=== PATIENT | male | born 1970 | race Caucasian/White ===

== ENCOUNTER → 2021-12-14 | Outpatient (CLI) | payer BC, SELFPAY ==
[2021-12-14 15:54] LABS: Anion Gap 7 (5-15); BUN 18 mg/dL (7-18); BUN/Creat Ratio 23.1 RATIO (10-20); Calcium,Total 9.2 mg/dL (8.5-10.1); Chloride 107 mmol/L (98-107); Cholesterol 183 mg/dL (200); Creatinine, Serum 0.78 mg/dL (0.70-1.30); EST Glomerular Filtration Rate 112 mL/min (>60); Est Glom Filt Rate - Afr Amer 135 mL/min (>60); Glucose 93 mg/dL (74-106); High Density Lipoprotein 54 mg/dL; Potassium 4.1 mmol/L (3.5-5.1); Sodium Level 139 mmol/L (136-145); Triglycerides 60 mg/dL; Very Low Density Lipoprotein 12 mg/dL (5-40)
== END | disposition home or self-care (01) ==
LOC: MFPLAB 12:41
PROVIDERS: Visit Provider Family Medicine
DX: Z00.00 Encounter for general adult medical examination without abnormal findings (principal)
CPT/HCPCS: 36415; 80048; 80061; 82306

== ENCOUNTER 2022-01-22 07:50 | Day surgery (SDC) | payer BC, SELFPAY ==
[2022-01-22 08:27] VITALS: BP 119/71; PULSE 68; RESP 18; TEMP 36.3; O2SAT 98; BMI 27.4
[2022-01-22] MEDS: Lactated Ringers 1,000 ML 15 ML IV (08:35)
--- NOTE | 2022-01-22 09:22 | HP.PCM_ITS ---
HPI - General HPI Narrative MARIETTA PRINGLE, is a 51 M who presents for screening colonoscopy. The patient has not had a colonoscopy in the past. He denies any abdominal pain or blood in the stool. He has no family history of colon cancer. [facility] Medical History (Updated 01/16/22 @ 10:57 by Kathy Noble) No pertinent past medical history Home Medications NK 12/20/21 [History Last Taken Unknown] Allergy/AdvReac Type Severity Reaction Status Date / Time No Known Allergies Allergy Verified 01/22/22 08:24 Surgical History (Updated 01/16/22 @ 10:57 by Kathy Noble) No pertinent past surgical history Social History Smoking Status: Never smoker Past Medical/Surgical History Planned Operation Planned Operative Procedure/s: Colonoscopy, OA Previous Hospitalizations/Surgeries HX Hospitalizations: No Any Problems With Anesthesia: No You/Your Family Experience Fever (Hyperthermia) With Anes: No Cholinesterase deficiency: No Cardiovascular Hx Hypertension: No Respiratory Hx Sleep Apnea: No Hx Respiratory Tract Infection/Cold (presently): No Do You Snore Loudly (louder than talking or can be heard): No Do You Often Feel Tired/ Fatigued/ Sleepy Dring Daytime?: No Has Anyone Observed You Stop Breathing During Sleep?: No Result (for STOP score): Negative Smoking Status: Never smoker Neurological Does patient have nerve stimulator: No Allergies No Known Allergies Allergy (Verified 01/22/22 08:24) Discharge Is Pt Admitted From a [facility], or a [facility]: No After D/C, Where Do you Plan to Go: Return Home Vital Signs Vital Signs Vital Signs: 01/22/22 08:26 01/22/22 08:27 Temperature 97.3 F L Temperature Source Temporal Pulse Rate 68 Respiratory Rate 18 Respiratory Pattern Normal Blood Pressure 119/71 Blood Pressure Mean 87 Blood Pressure Source Monitor Blood Pressure Position Semi-Fowlers Blood Pressure Location Right Arm Pulse Ox 98 Oxygen Delivery Method Room Air Weight Weight: 213 lb 12.8 oz Body Mass Index (BMI) 27.4 Physical Exam Const alert and oriented x3 Resp normal respiratory effort and normal air movement Cardio regular rate and regular rhythm GI soft to palpation, non-tender and non-distended Assessment & Plan Assessment/Plan (1) Encounter for screening for malignant neoplasm of colon: PLAN: I explained endoscopy in detail to the patient. I explained the risks including but not limited to stroke or heart attack with anesthesia, perforation of the GI tract, bleeding, infection. I explained that any of these could necessitate further emergency surgery. The patient understands and all questions were answered sufficiently. The patient wishes to proceed with procedure. Joseph Archibald MD Pager: [facility] [address] [place] [address] [address] [place] [address] Office: Surgery Risks - Colonoscopy Risks Include but are not Limited To: Risks include but are not limited to: Bleeding, perforation requiring further surgery, inability to complete colonoscopy requiring barium enema.
[2022-01-22 09:50] VITALS: BP 119/71; BP 81/56; PULSE 70; RESP 18; TEMP 36.6; O2SAT 98
--- NOTE | 2022-01-22 09:54 | OP.COLON_ITS ---
Patient Name: Nolan Dobson Procedure Date: 01/22/2022 9:28 AM Date of : 1970 Age: 51 Procedure: Colonoscopy Indications: Screening for colorectal malignant neoplasm Providers: Joseph Archibald MD Medicines: Monitored Anesthesia Care Patient Profile: This is a 51 year old male. Refer to note in patient chart for documentation of history and physical. Last Colonoscopy: none. The patient's first colonoscopy is today. Complications: No immediate complications. Procedure: Pre-Anesthesia Assessment: - Prior to the procedure, a History and Physical was performed, and patient medications and allergies were reviewed. The patient's tolerance of previous anesthesia was also reviewed. The risks and benefits of the procedure and the sedation options and risks were discussed with the patient. All questions were answered, and informed consent was obtained. Prior Anticoagulants: The patient has taken no previous anticoagulant or antiplatelet agents. After reviewing the risks and benefits, the patient was deemed in satisfactory condition to undergo the procedure. After I obtained informed consent, the scope was passed under direct vision. Throughout the procedure, the patient's blood pressure, pulse, and oxygen saturations were monitored continuously. The Colonoscope was introduced through the anus and advanced to the cecum, identified by appendiceal orifice and ileocecal valve. The colonoscopy was performed without difficulty. The patient tolerated the procedure well. The quality of the bowel preparation was good. Scope In: 9:38:10 AM Scope Withdrawal Time 0 hours 4 minutes 14 seconds Scope Out: 9:44:59 AM Total Procedure Duration Time 0 hours 6 minutes 49 seconds Findings: The entire examined colon appeared normal on direct and retroflexion views. Impression: - The entire examined colon is normal on direct and retroflexion views. - No specimens collected. Recommendation: - Discharge patient to home. - Resume previous diet. - Continue present medications. - Repeat colonoscopy in 10 years for screening purposes. Procedure Code(s): --- Professional --- 23927, Colonoscopy, flexible; diagnostic, including collection of specimen(s) by brushing or washing, when performed (separate procedure) Diagnosis Code(s): --- Professional --- Z12.11, Encounter for screening for malignant neoplasm of colon CPT copyright 2017 [employer]. All rights reserved. The codes documented in this report are preliminary and upon computer language coder review may be revised to meet current compliance requirements. Joseph Archibald MD 01/22/2022 9:53:38 AM This report has been signed electronically. Number of Addenda: 0 Note Initiated On: 01/22/2022 9:28 AM
[2022-01-22 09:55] VITALS: BP 106/76; BP 119/71; PULSE 66; RESP 16; O2SAT 97
[2022-01-22 10:00] VITALS: BP 106/84; BP 119/71; PULSE 60; RESP 16; O2SAT 98
[2022-01-22 10:05] VITALS: BP 119/71; BP 120/84; PULSE 64; RESP 16; TEMP 36.5; O2SAT 98
[2022-01-22 10:30] VITALS: BP 119/71
== END 2022-01-22 10:32 | disposition home or self-care (01) ==
LOC: EN 07:53 → AC 07:55
PROVIDERS: PCP Family Medicine; Referring Provider Surgery; Visit Provider Surgery
PROC: 0DJD8ZZ Inspection of Lower Intestinal Tract, Via Natural or Artificial Opening Endoscopic (ICD-10-PCS; CPT 45378; principal; 2022-01-22 08:55)
DX: Z12.11 Encounter for screening for malignant neoplasm of colon (principal)
CPT/HCPCS: 45378; J7120

== ENCOUNTER → 2025-03-03 | Outpatient (CLI) | payer BC, SELFPAY ==
--- OUTSIDE RECORDS SUMMARY | 2025-03-03 12:46 | XMS RPT_ITS | CCD ---
Author Organization [facility] Care Team Providers Care Obstetrics Nurse Practitioner Name Role Phone Luz Dudley Attending Provider Unavailable Dr. Jimmy Carpio Primary Care Provider Dr. Joseph Archibald Attending Provider Dr. Joseph Archibald Referring Provider Dr. Joseph Archibald Other Provider Jimmy Carpio MD Primary Care Provider [phone] PADMINI KAMINSKI Attending Unavailable ALONZO, JIMMY Primary Care Unavailable REG DILLARD Attending Unavailable ALONZO, JIMMY Primary Care Unavailable SHIRLEY GROVER Attending Unavailable ALONZO, JIMMY Primary Care Unavailable KIA MUÑOZ Attending Unavailable ALONZO, JIMMY Primary Care Unavailable ALONZO, JIMMY Primary Care Unavailable PADMINI KAMINSKI Referring Unavailable KIA MUÑOZ Attending Unavailable ALONZO, JIMMY Primary Care Unavailable KIA MUÑOZ Attending Unavailable ALONZO, JIMMY Primary Care Unavailable SHIRLEY GROVER Referring Unavailable ALONZO, JIMMY Primary Care Unavailable Medications Current Medications Medication Drug Class(es) Dates Sig (Normalized) Sig (Original) [place] (Nk) (1 source) Start: 12-20-2021 [place] (Nk) A ctive December 20, 2021 12:00am Completed/Discontinued Medications Medication Drug Class(es) Dates Sig (Normalized) Sig (Original) bacitracin 0.5 unt/mg topical ointment (2 sources) Start: 09-07-19 End: 09-07-19 apply 1 dose topically once Topical, Once, On Fri09/07/24 at 1450, For 1 dose cefadroxil 500 mg oral capsule (4 sources) Cephalosporin Antibacterial Start: 09-08-19 End: 09-18-19 take 1 capsule by mouth twice daily cefadroxil (Duricef) 500 MG capsule Indications: Avulsion of nail of left middle finger Take 1 capsule (500 mg) by mouth 2 times daily for 10 days. 20 capsule 09/08/2024 09/18/2024 ibuprofen 400 mg oral tablet (2 sources) Nonsteroidal Anti-inflammatory Drug Start: 09-07-19 End: 09-07-19 take 800 mg by mouth once 800 mg, Oral, Once, On Fri09/07/24 at 1345, For 1 dose methylPREDNISolone 4 mg oral tablet (2 sources) Corticosteroid Start: 05-21-20 End: 05-26-20 take 1 tablet by mouth once Methylprednisolone (Medrol (Manpreet)) 4 mg tablets,dose pack Discontinued 4 MG PO per package directions 21 5 May 21, 2021 7:49am May 26, 2021 12:01am 10 ml tranexamic acid 100 mg/ml injection (2 sources) Antifibrinolytic Agent Start: 09-07-19 End: 09-07-19 apply 10 mL topically once 10 mL, Topical, Once, On Fri09/07/24 at 1425, For 1 dose, Bedside to soak gauze for finger wound, Apply to: Both Nares Problems Active Problems Problem Classification Problem Date Documented Da te Episodic/Chronic Open wounds of extremities (20 sources) Open wound of left middle finger; Translations: [Unspecified open wound of left middle finger without damage to nail, initial encounter] Onset: 09-07-2024 09-07-2024 Episodic Osteoarthritis (3 sources) Arthritis of left knee; Translations: [Unilateral primary osteoarthritis, left knee] Onset: 10-29-2024 10-29-2024 Chronic Other connective tissue disease (3 sources) Plantar fasciitis; Translations: [Plantar fascial fibromatosis] Onset: 10-26-2024 10-26-2024 Episodic Other non-traumatic joint disorders (2 sources) Pain in left knee; Translations: [Pain in left knee] Onset: 10-29-2024 Episodic Other screening for suspected conditions (not mental disorders or infectious disease) (4 sources) Patient encounter status; Translations: [Encounter for screening for malignant neoplasm of colon] Onset: 10-26-2024 Episodic Past or Other Problems Problem Classification Problem Date Documented Da te Episodic/Chronic Unclassified (4 sources) Open wound of left middle finger 09-07-2024 Results Test Name Value Interpretation Reference Range Facility Office Visiton 10-29-2024 Follow-up visit [id number] Morris Dobson 1970 M Date Provider Department Center 10/29/2024 [id number], SHIRLEY [facility] None No family history on file Level of Service:55028 [place] OFFICE/OUTPATIENT NEW LOW MDM 30 MINUTES (25) Reason for Visit and Comments: New Patient [542] - Left knee pain Normal [facility] Progress Noteon 10-29-2024 Progress Note [facility] [address] [facility] [address] Dept: [phone] Dept Marietta Dobson 1970 [id number] 10/29/2024 Chief Complaint Patient presents with New Patient Left knee pain HPI: Marietta is a 54 y.o. male who is here today for evaluation of his left knee. Their symptoms have been on and off for 10 years but got worse a couple of weeks ago. The current symptoms started after no recent injury. 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 The patient complains of stiffness and swelling. The pain is located medial and posterior. Activities that make the pain worse include going up/down stairs and being on his feet long periods of time. Previous Treatments NSAIDs: Yes - Aleve Helpful Injection: No - Has never received an injection Bracing: No Therapy: No - Has not attempted formal therapy Surgery: No- Has not had previous surgery on the symptomatic extremity MRI: No Has not had an MRI The patient is employed as a production maintenance mechanic. Marietta is referred by self. SANE score: 80 No Known Allergies No current outpatient medications on file prior to visit. No current facility-administered medications on file prior to visit. No past medical history on file. No past surgical history on file. Social History Socioeconomic History Marital status: Spouse name: Not on file Number of children: Not on file Years of education: Not on file Highest education level: Not on file Occupational History Not on file Tobacco Use Smoking status: Never Smokeless tobacco: Never Substance and Sexual Activity Alcohol use: Not Currently Comment: occasionally Drug use: Never Sexual activity: Not on file Other Topics Concern Not on file Social History Narrative Not on file Social Drivers of Health Financial Resource Strain: Not on file Food Insecurity: Not on file Transportation Needs: Not on file Physical Activity: Not on file Stress: Not on file Social Connections: Not on file Intimate Partner Violence: Not on file Housing Stability: Not on file No family history on file. Physical Exam: BP 132/86 Ht 6' 2 (1.88 m) Wt 215 lb (97.5 kg) BMI 27.60 kg/m? MUSCULOSKELETAL: Hip Exam: no pain elicited with internal and external range of motion. Lumbar Exam: negative same side and contralateral straight leg raise. Left Knee: Palpation reveals no tenderness Non tender with palpation over the remaining bony prominences or palpable structures around the knee. Negative homans sign at the calf. Patellofemoral exam reveals moderate crepitus with patellar compression and knee ROM and no significant pain or apprehension with patellar compression or manipulation Inspection of the knee reveals no obvious deformity or swelling, no obvious skin lesion, erythema, or discoloration. Mild effusion. Neutral alignment. Scars include none. ROM: RIGHT LEFT Extension AROM Full PROM Same AROM Full PROM Same Flexion AROM 130? PROM Same AROM 130? PROM Same Sensation: Sensation intact over the medial and anterior thigh, medial and posterolateral calf, dorsal and plantar foot. Pulse: Palpable DP pulse. Reflexes: 2+ patellar reflexes. Motor: Motor is 5/5 with knee extension, flexion. Ligamentous Examination: ACL testing reveals negative howard with firm endpoint. Negative pivot shift. PCL testing reveals negative posterior drawer testing. MCL testing reveals negative valgus stress with firm endpoint at 0 and 30 degrees. LCL testing reveals negative varus stress with firm endpoint at 0 and 30 degrees. Special Tests (as indicated): Pain with hyperextension: negative Pain with hyperflexion: negative Mendoza's test: No significant pain elicited with mendoza testing Thessaly test (Standing wt-bearing pivoting): N/A Imaging: Knee Xrays: Plain films were taken today and reviewed in office. Weight bearing 4 views including AP, and PA flex views of bilateral knees, lateral and sunrise views of the affected knee(s) show mild to moderate narrowing in the left medial compartments with associated sclerosis and osteophyte formation in affected compartments noted above. 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 No evidence of fracture or other osseous abnormality. No evidence of obvious malignant bony lesions. Other Diagnostic Testing: None IMPRESSION: Diagnosis Plan 1. Arthritis of left knee PROCEDURE: None PLAN: The patients history, exam, and imaging is consistent with acute on chronic pain consistent with mild to moderate arthritis. He does report a basketball related injury about 10 years ago where he likely caused a meniscus tear and MCL tear. 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 We discussed overall prognosis and general conservative versus potential surgical treatment option. Given his flare of sym (more content not included)... Normal [facility] XR KNEE 4+ VIEWS LEFTon 03-2 XR KNEE 4+ VIEWS LEFT Weight bearing 4 views including AP, and PA flex views of bilateral knees, lateral and sunrise views of the affected knee(s) show mild to moderate narrowing in the left medial compartments with associated sclerosis and osteophyte formation in affected compartments noted above. 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 No evidence of fracture or other osseous abnormality. No evidence of obvious malignant bony lesions. Normal [facility] 36on 10-21-2024 36 Fax successfully and paperwork scanned into the chart Normal [facility] 36 Paperwork completed and fax pending awaiting confirmation [facility] 36 ----- Message from Jennifer Salazar sent at 10/19/2024 3:06 PM EDT ----- Regarding: BWC plan BW Plan Current work status: remain on light duty NWB left long finger and must keep clean and dry. He can return to work full duty on 11/15/24. C9 request: None [facility] 37on 10-19-2024 37 [email or web address] Finger Protectors/Cots: Disposable protector finger covers: THERAPY TO MAKE YOUR HANDS LESS TENDER Hand injuries are often very tender during the early healing phase. Often, tenderness in scars gets worse starting one to two weeks after injury or surgery. Unfortunately, this tenderness does not always go away by itself. The nerves in the hand are special and are more sensitive than other parts of the body. After any injury, the skin of the hand must get used to being touched again for the tenderness to go away. If you do not touch the sore areas of your hand, they may remain very sensitive and tender. The techniques of PERCUSSION and FRICTION MASSAGE outlined in this pamphlet will help speed up the process of recovery from tenderness in your hands and fingers. The goal of these exercises is to make your wounds less tender. It is normal for these exercises to be somewhat uncomfortable while doing them or shortly afterwards. If the exercises are too painful, try using less pressure. If that does not work, then give yourself a several hour break and try again. If pain again is a problem, speak with your doctor or your therapist. These exercises will not be recommended until it is safe to do them. PERCUSSION (Tapping): This technique activates the automatic reflex which makes us ignore things which are very repetitive. This reflex will dull the tenderness in areas of your hand that are touched repeatedly. Here is how to do percussion: 1. Tap lightly on the area of your hand which is tender. You can tap on the sensitive area with a finger tip of your other hand or with a light object such as a pencil. 2. Find the spot which is the most tender. 3. Note the time, and begin to tap rapidly (2-3 times a second), lightly and continuously on the most tender area. 4. Keep tapping without a break for three minutes or until you notice the feeling in the area change. The area may start to feel numb or it may simply feel a little bit less tender. 5. Take a minute rest and begin again. You may find that a different area is now the most tender spot. This exercise should be done as many times as possible during the day. It takes many thousands of taps to really change the tenderness in a sore area. The sooner you accumulate that many taps, the sooner your wounds will be more comfortable. FRICTION MASSAGE: The goal of friction massage is to STRETCH the scar tissue beneath the skin. As with percussion, it should be done many times during the day. This exercise not only helps improve tenderness, but helps restore the contour of the skin to a more normal appearance. Here is how to do friction massage: 1. Place a finger tip of your other hand against the central area of the scar. 2. Mentally note four directions that the skin can be pushed sideways: near, far, left and right. 3. With your finger tip pressed firmly against the scar and without sliding, gently but steadily push the skin to one side as if you were trying to slide the skin off of the bone. Hold this position for five seconds. 4. Briefly relax and then repeat this maneuver in one of the other directions. Make sure you attempt to slide the skin in all four directions. 5. If the scar is wider than your finger tip, repeat this stretching exercise on every point of the scar. This exercise is done without any skin lubrication. Remember to do this exercise before applying any antibiotic ointment or moisturizing creams. Patient Education Hand and Finger Exercises About this topic Your doctor may want you to do hand and finger exercises. They may: Increase blood flow to nerves, muscles, and joints in your hand Ease joint stiffness in your hand Help you heal faster after injury or surgery Help make your daily activities easier to do General Before starting with a program, ask your doctor if you are healthy enough to do these exercises. Your doctor may have you work with a inside sales trainer or physical therapist to make a safe exercise program to meet your needs. Strengthening Exercises Strengthening exercises keep your muscles firm and strong. Sit while doing these exercises. Be sure to use good posture. Start by repeating each exercise 2 to 3 times. Work up to doing each exercise 10 times. Try to do the exercises 2 to 3 times each day. Do all exercises slowly. Tendon gliding exercises using 4 positions ? Start by holding your hand with your fingers straight. Then, bend only the last two joints of your fingers and move your fingers into a hook or claw position. Next, straighten your fingers and bend your knuckles to make a flat table top position. This is also called the duckbill position. Last, make a full fist. Moving your hand into all 4 positions is one exercise. Finger and thumb bending and straightening ? Open your hand as far as you can. Spread your thumb away from the rest of your grace (more content not included)... Normal [facility] Office Visiton 10-19-2024 Follow-up visit [id number] Morris Dosbon 1970 M Date Provider Department Center 10/19/2024 [id number] MUÑOZ [facility] None No family history on file Level of Service:80329 [place] POSTOP FOLLOW UP VISIT RELATED TO ORIGINAL PX Reason for Visit and Comments: Follow-up [215445] - left long finger wound check DOI 09/07/24 [facility] Progress Noteon 10-19-2024 Progress Note Subjective: Marietta is approximately 6 week(s) s/p left long finger nail avulsion/laceration. Pain is minimal, moderate when he bumps it. He is no longer taking anything for pain. He reports improvement in pain. The patient has been compliant with non-weight bearing restrictions in soft dressing. He admits to numbness and tingling. The patient has been performing daily soaks and dressing changes. Today is the first day with no drainage. The patient feels his finger continues to gradually improve as expected. He reports persistent moderate hypersensitivity at the tip of his finger as well as paresthesias along the radial and ulnar aspect of his middle finger pulp. He has remained on light duty which he feels has been working well. He eventually would like to return to full duty but feels he may need additional time. He has had scant intermittent drainage from the tip of his finger but over the past 24 hours has not noted any drainage whatsoever. He continues to perform soaks and dressing changes as instructed. He has no additional concerns today regarding his hand. He does request a referral to a specialist to evaluate and treat his knee pain. He has a history of meniscus/ligament injury. Objective: Ht 6' 2 (1.88 m) Wt 215 lb (97.5 kg) BMI 27.60 kg/m? Ortho Exam Focused Exam of the Left Upper Extremity Skin: healing laceration over the middle finger without evidence of infection which is dry and scabbed with no active or expressible drainage, no signs of infection, new nail plate comprises the proximal third of the nailbed Clinical Picture: Edema: mild edema surrounding the long finger Palpation: tender to palpation over the long finger wound as expected with mild hypersensitivity ROM: LEFT long finger MCP (nl 0-45?H/90?) PIP (nl 0?/100?) DIP (nl 0?-80?) Tip to Palm EXTENSION 0? 0? 0? FLEXION Not measured Not measured Not measured able to contact *(Passive values entered only if different than active; otherwise = AROM) Remaining fingers flex to palm. Active wrist range of motion: full flexion/ full extension. Pronation full/ Supination full. Motor: Intact in the hand - able to fire AIN, PIN, and Ulnar nerves Sensation: to light touch is normal in the median, ulnar, and radial nerve distributions Perfusion: Brisk capillary refill in all 5 digits XRay: None Assessment Diagnosis Plan 1. Avulsion of nail of left middle finger Plan I would like Marietta to continue daily soaks and soft dressing changes until it has been 2-3 days since last noting drainage from his wound. He can then progress to wearing a soft dressing only or silicone/cotton sleeve over the tip of the finger for protection and hypersensitivity when active. This can be discontinued once he no longer has scabbing over the wound and feels comfortable without a finger covering. Finger range of motion was encouraged. Home going therapy exercises were demonstrated today in the office and detailed exercise instructions are provided to the patient. The patient is to remain partial weightbearing through the hand until the wound is completely healed and then can begin gentle weightbearing as tolerated. The patient was advised to gradually advance weightbearing as tolerated using pain as a guide. Expected recovery course was discussed with the patient. He was recommended desensitization exercises. He will continue light duty until November 15 and then can return to full duty without restrictions. He understands that he can reach out with any concerns in the interim or if he does not feel he can proceed with returning to full duty as planned. Otherwise, if he is recovering well as expected, he can follow up in the office on an as needed basis. Their questions were answered and are comfortable with the plan. Weight Bearing: Partial Weight Bearing (no more than 2-5lbs) until wound is completely healed then WBAT Rehabilitation: Home Exercises: full range of motion and to be partial until wound healed then gradual weight bearing. Instructions reviewed today in office. I plan to see Marietta back on an as needed basis to see how he is doing. Marietta knows to call the office with any questions or concerns in the interim. Future Imaging: None [facility] Plan Current work status: remain on light duty NWB left long finger and must keep clean and dry. He can return to work full duty on 11/15/24. C9 request: None Electronically signed by Kia Muñoz PA-C to Reg Dillard M.D. Hand & Upper Extremity Surgery 10/19/2024 at 3:05 PM. (Please note that portions of this note may have been completed with a voice recognition program. Efforts were made to edit the dictations but occasionally words are mis-transcribed.) Normal [facility] 36on 10-07-2024 36 Scanned successfully Normal [facility] 365 36 Fax successfully and paperwork will be scanned into the chart [facility] 36 Paperwork completed and fax pending awaiting confirmation [facility] 36 ----- Message from Jennifer Salazar sent at 09/30/2024 1:18 PM EST ----- Regarding: BW Plan BW Plan Current work status: continue light duty, non weight bearing of the left hand and must wear dressing/splint on the middle finger at all times . C9 request: none [facility] Office Visiton 09-28-2024 Follow-up visit [id number] BronsonMorris ness zoë 1970 M Date Provider Department Center 09/28/2024 [id number] MUÑOZ [facility] None No family history on file Level of Service:92737 [place] POSTOP FOLLOW UP VISIT RELATED TO ORIGINAL PX Reason for Visit and Comments: Follow-up [[id number]] - [facility] - left long finger wound check DOI 09/07/24 [facility] Progress Noteon 09-28-2024 Progress Note Subjective: Marietta is approximately 3 week(s) s/p closed treatment of open left long finger nail avulsion/laceration DOI: 09/07/24 . Pain is nonexistent. He is no longer taking anything for pain. He denies significant complaints. The patient has been compliant with non-weight bearing restrictions in soft dressing. He admits to numbness and tingling. The patient has been performing daily soaks and dressing changes and completed the course of oral antibiotics. The patient returns today for a repeat skin check. He feels his wound is gradually healing as expected. He still has occasional drainage on his bandages and has been performing soaks as recommended. He completed his oral antibiotics. He continues to protect his finger with a dry bandage or splint as needed. He is uncertain if he would be able to return to work as he continues to have an open wound with limited weightbearing. Objective: BP (!) 123/93 Pulse 82 Ht 6' 2 (1.88 m) Wt 215 lb (97.5 kg) BMI 27.60 kg/m? Ortho Exam Focused Exam of the LEFT Upper Extremity Skin: Appropriately healing wound along the pulp and distal nailbed of the middle finger, progressive adequate granulation tissue along the pulp wound, progressive epithelialization and callus formation along the dorsal aspect of the finger, new nail plate erupting from the eponychial fold, no active or expressible drainage, no surrounding erythema or signs of infection Clinical Picture: Edema: mild edema surrounding the long finger Palpation: tender to palpation over the long finger wound as expected ROM: LEFT long finger MCP (nl 0-45?H/90?) PIP (nl 0?/100?) DIP (nl 0?-80?) Tip to Palm EXTENSION 0? 0? 0? FLEXION 90? 70? 20? able to contact *(Passive values entered only if different than active; otherwise = AROM) Remaining fingers flex to palm. Active wrist range of motion: full flexion/ full extension. Pronation full/ Supination full. Malrotation of Digit: No Malalignment: of Digit: No Motor: Intact in the hand - able to fire AIN, PIN, and Ulnar nerves Sensation: to light touch is normal in the median, ulnar, and radial nerve distributions Perfusion: Brisk capillary refill in all 5 digits XRay: NONE Assessment Diagnosis Plan 1. Avulsion of nail of left middle finger 2. Laceration of left middle finger without foreign body with damage to nail, subsequent encounter 3. Open wound of left middle finger Plan Marietta is healing his wound as expected without signs of infection today. I would like him to continue daily soaks, soft dressing changes, and Alumifoam splint as needed. Once he no longer notices drainage for 2 to 3 days, he can discontinue soaks. I would like him to continue protecting his finger when he is active with either a soft dressing or his AlumaFoam splint. Finger range of motion was encouraged. The patient was encouraged to come out of the splint multiple times a day to work on wrist and hand range of motion exercises. Home going therapy exercises were demonstrated today in the office and detailed exercise instructions are provided to the patient. The patient is to remain nonweightbearing through the hand for 3 more weeks and then can begin gentle weightbearing as tolerated in the splint. The patient was advised to gradually advance weightbearing as tolerated using pain as a guide. Once fully weightbearing in the splint, can begin weaning out of the splint and use as needed. Expected recovery course was discussed with the patient. I would like him to follow-up in 3 weeks for repeat wound check and to discuss his ability to return to full duty at work. In the meantime, he will continue light duty and was provided a letter for work today. Their questions were answered and are comfortable with the plan. Weight Bearing: Non Weight Bearing Rehabilitation: Home Exercises: full range of motion and to be non weight bearing. Instructions reviewed today in office. I plan to see Marietta back in 3 weeks to see how he is doing. Marietta knows to call the office with any questions or concerns in the interim. Future Imaging: NONE [facility] Plan Current work status: continue light duty, non weight bearing of the left hand and must wear dressing/splint on the middle finger at all times . C9 request: none Electronically signed by Kia Muñoz PA-C to Reg Dillard M.D. Hand & Upper Extremity Surgery 09/29/2024 at 5:06 PM. (Please note that portions of this note may have been completed with a voice recognition program. Efforts were made to edit the dictations but occasionally words are mis-transcribed.) [facility] 36on 2024 36 Fax successfully and paperwork scanned into the chart [facility] 36 C9 OT approval with disclaimer uploaded to media. AA pending [facility] 36 Paperwork completed and fax pending awaiting confirmation [place] [id number] ----- Message from Jennifer Salazar sent at 2024 9:30 AM EST ----- Regarding: [facility] Plan [facility] Plan Current work status: light duty keep wound covered at all times and non weight bearing C9 request: none [facility] 37on 09-15-2024 37 Soaks for Open Wound s Dr. Reg Dillard Please send clinical photos to Please include your name and date of in the subject line of e-mail Please remove all dressings so that you may see the skin fully Prepare a clean sink full of warm water (bath temperature). Add 3 or 4 squirts of liquid antibacterial soap Insert hand and soak for approximately 15 minutes, making sure to exercise your fingers under the water After finished soaking, pat wound dry Apply dressing as instructed in the office Layer #1 - Light cotton gauze Layer #2 - MJ wrap or other loose covering I typically recommend soaking 3 times per day with a clean dressing change after each soak. To be continued until wound completely closed with no drainage in dressings. Normal [facility] Office Visiton 09-15-2024 Follow-up visit [id number] Morris Dobson 1970 M Date Provider Department Center 09/15/2024 [id number]-QHSIDJOKIA MUÑOZ [facility] ORT GRN None No family history on file Level of Service:10329 [place] POSTOP FOLLOW UP VISIT RELATED TO ORIGINAL PX Reason for Visit and Comments: Follow-up [663800] Worker's Compensation [732] Wound Check [635759] Normal [facility] Progress Noteon 09-15-2024 Progress Note Subjective: Marietta is approximately 8 day(s) s/p left long finger nail avulsion/laceration DOI: 09/07/24. Pain is minimal. He is no longer taking anything for pain. He reports improvement in pain. The patient has been compliant with non-weight bearing restrictions in soft dressing. He admits to numbness and tingling just on the tip of the finger and the back where the wound is. The patient has been performing daily soaks and dressing changes and continues to take the course of oral antibiotics. The patient returns for repeat skin check. He continues to report drainage from his finger and has been compliant with his soaks and dressing changes. He has not yet returned to work but plans to next week. He feels that his finger range of motion has been gradually improving as well as his pain. He denies fevers and chills. Objective: Ht 6' 2 (1.88 m) Wt 215 lb (97.5 kg) BMI 27.60 kg/m? Ortho Exam Focused Exam of the Left Upper Extremity Skin: Appropriately healing avulsion wound from the volar pulp and distal nailbed of the middle finger, adequate granulation tissue present throughout the base of the wound with scattered fibrous tissue present distally and mild scabbing, subtle active serosanguineous drainage from the distal wound bed with no signs of infection Clinical Picture: Edema: moderate edema surrounding the long finger wound Palpation: tender to palpation over the long finger wound, minimal ROM: LEFT long finger MCP (nl 0-45?H/90?) PIP (nl 0?/100?) DIP (nl 0?-80?) Tip to Palm EXTENSION 0? 0? 0? FLEXION Not measured Not measured Not measured 2cm *(Passive values entered only if different than active; otherwise = AROM) Remaining fingers flex to palm. Active wrist range of motion: full flexion/ full extension. Pronation full/ Supination full. Motor: Intact in the hand - able to fire AIN, PIN, and Ulnar nerves Sensation: to light touch is normal in the median, ulnar, and radial nerve distributions Perfusion: Brisk capillary refill in all 5 digits XRay: None Assessment Diagnosis Plan 1. Avulsion of nail of left middle finger 2. Laceration of left middle finger without foreign body with damage to nail, subsequent encounter 3. Open wound of left middle finger Plan Marietta is healing his wound appropriately with no evidence of infection today. He was advised to continue daily soaks, soft dressing changes, antibiotics, and Alumifoam splint. Finger range of motion was encouraged within the confines of the splint. He understands he can remove his dressing and splint to perform range of motion without limits preferably while he is doing his soaks. No formal therapy is needed at this time. The patient is to remain nonweightbearing through the hand until his wound is completely healed. Expected recovery course was discussed with the patient. He will continue to monitor for signs of infection and contact the office if he has any concerns. He we will return to work next week as planned on light duty. His questions were answered and he is comfortable with the plan. Weight Bearing: Non Weight Bearing Rehabilitation: Home Exercises: full range of motion and to be non weight bearing. Instructions reviewed today in office. I plan to see Marietta back in 2 weeks to see how he is doing. Marietta knows to call the office with any questions or concerns in the interim. Future Imaging: None [facility] Plan Current work status: light duty keep wound covered at all times and non weight bearing C9 request: none Electronically signed by Kia Muñoz PA-C to Reg Dillard M.D. Hand & Upper Extremity Surgery 09/15/2024 at 5:31 PM. (Please note that portions of this note may have been completed with a voice recognition program. Efforts were made to edit the dictations but occasionally words are mis-transcribed.) [facility] 09-13-2024 36 Fax successfully and paperwork scanned into the chart [facility] 09-09-2024 36 Additional allowance C9 was submitted as well Paperwork completed and fax pending awaiting confirmation [facility] 36 ----- Message from Jennifer Salazar sent at 09/08/2024 10:27 AM EST ----- Regarding: [facility] plan [facility] Plan Current work status: may return to work light duty on 09/08/24, with the following restrictions NWB and keep covered. C9 request: OT [facility] 3609-08-2024 36 Appointment schedule d with Dr. Dillard for today at 9:30am. Patient aware of appointment time and location. [facility] 09-08-2024 37 Soaks for Open Wound s Dr. Reg Dillard Please send clinical photos to Please include your name and date of in the subject line of e-mail Please remove all dressings so that you may see the skin fully Prepare a clean sink full of warm water (bath temperature). Add 3 or 4 squirts of liquid antibacterial soap Insert hand and soak for approximately 15 minutes, making sure to exercise your fingers under the water After finished soaking, pat wound dry Apply dressing as instructed in the office Layer #1 - Light cotton gauze Layer #2 - MJ wrap or other loose covering I typically recommend soaking 3 times per day with a clean dressing change after each soak. To be continued until wound completely closed with no drainage in dressings. Normal [facility] Office Visiton 09-08-2024 Follow-up visit [id number] Morris Dobson 1970 M Date Provider Department Center 09/08/2024 [id number] DILLARD [facility] None No family history on file Level of Service:87117 [place] OFFICE/OUTPATIENT NEW LOW MDM 30 MINUTES Reason for Visit and Comments: New Patient [542] - Left middle finger Normal [facility] Progress Noteon 09-08-2024 Progress Note [facility] [address] [facility] [address] Dept: [phone] Dept Chief Complaint Patient presents with New Patient Left middle finger HISTORY Marietta Dobson is a 53 y.o. right handed male that presents for evaluation and treatment after sustaining an injury to his LEFT long finger that occurred 1 days ago. 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 Mechanism of injury - stuck in rubber roll press. Treatment up to this point has consisted of XRays and splinting in the emergency room. No results found for: HGBA1C The patient reports an injury to his left middle finger at work yesterday where it was stuck in a rolling press. He noticed immediate bleeding along the tip of his finger and nailbed and was treated with x-rays and soft dressing/splinting in the emergency department. He comes out of this dressing for the first time since application yesterday. He has mild stiffness of his finger which he relates to immobilization. OBJECTIVE Ht 6' 2 (1.88 m) Wt 215 lb (97.5 kg) BMI 27.60 kg/m? Ortho Exam Focused Exam of the LEFT Upper Extremity Skin: Soft tissue avulsion from the distal pulp and nailbed of the left middle finger with nail plate no longer intact, surrounding area is mildly macerated, mild serosanguineous drainage Clinical image(s): Edema: mild edema surrounding the middle finger wound Palpation: tender to palpation over the middle finger wound is expected ROM: RIGHT long finger MCP (nl 0-45?H/90?) PIP (nl 0?/100?) DIP (nl 0?-80?) Tip to Palm EXTENSION 0? 0? 0? FLEXION Not measured Not measured Not measured Limited flexion due to splinting and pain, expected *(Passive values entered only if different than active; otherwise = AROM) Patient is able to fire FDS and FDP to the middle finger Stability: no evidence of joint instabilities Motor: AIN, PIN, and ulnar motor intact Sensation: normal in the median, ulnar, and radial nerve distributions Perfusion: Brisk capillary refill in all 5 digits Examination of the contralateral upper extremity reveals skin to be warm, dry, and intact. There is no evidence of edema. He has full range of motion without apparent instabilities. There is no apparent tenderness to palpation. Excellent strength without deficit. Normal coordination and sensation throughout his upper extremity. Easily palpable radial pulse. IMAGING Plain films were reviewed by myself from a previous date. 3V HAND (AP, Oblique, and LAT) show soft tissue avulsion from the tip of the middle finger, no acute osseous abnormalities, advanced thumb CMC osteoarthritis PROCEDURE None ASSESSMENT (S61.313A) Laceration of left middle finger without foreign body with damage to nail, initial encounter (Q51.303A) Avulsion of nail of left middle finger 1. Laceration of left middle finger without foreign body with damage to nail, initial encounter 2. Avulsion of nail of left middle finger cefadroxil (Duricef) 500 MG capsule PLAN I discussed with Marietta the natural history, expected outcome, and risks/benefits of both operative and nonoperative management of his particular diagnosis relative to his age, activity level, most recent imaging, and physical exam. Marietta elected to proceed with 3 times daily soaks and subsequent dressing changes, oral antibiotics as prescribed until completion, and DIP extension splinting as needed when active. He was encouraged to work on finger range of motion during his soaks but remain nonweightbearing through his left middle finger until his wound is completely healed. We reviewed expected recovery course. We also discussed signs of infection and he was advised to notify the office upon noticing any of these signs. He was provided with a work excuse letter listing his restrictions and we will complete [facility] forms as indicated. He will follow-up next week for repeat skin check. His questions were answered and he is comfortable with the plan. Immobilization: Alumafoam splint to be worn PRN Weight Bearing: Non Weight Bearing Follow-up: Marietta will followup with my physician facility assistant, Kia Muñoz PA-C in 1 weeks. He knows to call the office with any questions or concerns in the interim. Future Imaging: NONE [facility] Plan Current work status: light duty keep wound covered and non weight bearing C9 request: none Reg Dillard MD Hand and Upper Extremity Surgery [facility] Department of Orthopaedics and Sports Medicine 09/08/2024 (Please note that portions of this note may have been completed with a voice recognition program. Efforts were made to edit the dictations but occasionally words are mis-transcribed.) Normal [facility] ED Provider Noteon ED Provider Note EMERGENCY DEPARTMENT ENCOUNTER Pt Name: Marietta Dobson Birthdate 1970 Date of evaluation: 09/07/2024 ED Provider: Padmini Kaminski DO CHIEF COMPLAINT Chief Complaint Patient presents with Finger Injury Left middle finger was smashed in rubber pressure roll at work HISTORY OF PRESENT ILLNESS (Location/Symptom, Timing/Onset, Context/Setting, Quality, Duration, Modifying Factors, Severity) Note limiting factors. I wore appropriate PPE for the entirety of this encounter. HPI 53-year-old presents emergency department today with left middle finger crush injury after his finger got stuck in a rubber pressure roll at work. Uncertain of when last tetanus is updated. Avulsion injury with complete avulsion of nail to the left middle finger. Nursing Notes were reviewed. Limitations to history: None Outside historians: None REVIEW OF SYSTEMS Review of Systems Skin: Positive for wound. Pertinent positives and negatives as per HPI. PAST MEDICAL HISTORY History reviewed. No pertinent past medical history. SURGICAL HISTORY History reviewed. No pertinent surgical history. CURRENT MEDICATIONS Previous Medications No medications on file ALLERGIES Patient has no known allergies. FAMILY HISTORY No family history on file. SOCIAL HISTORY Social History Socioeconomic History Marital status: Tobacco Use Smoking status: Never Smokeless tobacco: Never Substance and Sexual Activity Alcohol use: Not Currently Comment: occasionally Drug use: Never SCREENINGS PHYSICAL EXAM ED Triage Vitals Temp Pulse Resp BP -- -- -- -- SpO2 Temp src Heart Rate Source Patient Position -- -- -- -- BP Location FiO2 (%) -- -- Physical Exam Vitals and nursing note reviewed. Constitutional: Appearance: Normal appearance. Cardiovascular: Rate and Rhythm: Normal rate. Pulmonary: Effort: Pulmonary effort is normal. Skin: General: Skin is warm and dry. Comments: Complete avulsion of fingernail of left middle finger and avulsion wound on the palmar aspect as well of the DIP of the left finger. Neurological: General: No focal deficit present. Mental Status: He is alert. Mental status is at baseline. Psychiatric: Mood and Affect: Mood normal. Behavior: Behavior normal. DIAGNOSTIC RESULTS Procedures/EKG: EKG was reviewed by myself. Physician EKG interpretation can be found in [facility] RADIOLOGY (Per Emergency Physician): Interpretation per the Radiologist below, if available at the time of this note: XR hand 3+ views left Final Result No acute fracture or dislocation identified. Extensive soft tissue swelling of the third digit distal aspect. Report Dictated on Electronically Signed By: Mack Andrade MD Electronically Signed Date/Time: 09/07/2024 2:44 PM EST ED BEDSIDE ULTRASOUND: Performed by ED Physician - none LABS: Labs Reviewed - No data to display All other labs were within normal range or not returned as of this dictation. EMERGENCY DEPARTMENT COURSE and DIFFERENTIAL DIAGNOSIS/MDM: Vitals: Vitals: 09/07/24 1342 BP: (!) 145/97 BP Location: Right arm Patient Position: Lying Pulse: 78 Resp: 18 Temp: 36.7 ?C (98.1 ?F) SpO2: 98% Weight: 97.5 kg (215 lb) Height: 1.88 m (6' 2) ED Course as of 09/07/24 1516 Tue Sep 07, 2024 1349 53-year-old presents emergency department today with left middle finger crush injury after his finger got stuck in a rubber pressure roll at work. Uncertain of when last tetanus is updated. Avulsion injury with complete avulsion of nail to the left middle finger. Will obtain x-ray to evaluate for fracture give ibuprofen for pain and update tetanus. Will discuss with orthopedic surgery. [BM] 1447 XR:No acute fracture or dislocation identified. Extensive soft tissue swelling of the third digit distal aspect. [BM] 1448 Per orthopedic surgery: soak them in betadine solution and then rinse with NS. As far as dressing, I would recommend adaptic with bacitracin dressing and soft dressing over top. Given no exposed bone, will discharge home with this dressing and close outpatient follow-up with hand surgery and wound care. [BM] ED Course User Index [BM] Padmini Kaminski DO Diagnoses as of 09/07/241515 Open wound of left middle finger Soaked wound in Betadine, rinsed with TXA and normal saline. Applied bacitracin, Adaptic dressing and bulky dressing over top. Spoke with Dr. Dillard of hand surgery who will be able to see patient in his office tomorrow. Wound Care Performed by: Padmini Kaminski DO Authorized by: Padmini Kaminski DO Consent: Consent obtained: Verbal Consent given by: Patient Risks, benefits, and alternatives were discussed: yes Risks discussed: Bleeding, infection and pain Altheimer protocol: Patient identity confirmed: Verbally with patient Pre-procedure details: Preparation: Patient was prepped and (more content not included)... [facility] No Panel Informationon 09-07 Padmini Kaminski DO 09/07/2024 3:16 PM Wound Care Performed by: Padmini Kaminski DO Authorized by: Padmini Kaminski DO Consent: Consent obtained: Verbal Consent given by: Patient Risks, benefits, and alternatives were discussed: yes Risks discussed: Bleeding, infection and pain Altheimer protocol: Patient identity confirmed: Verbally with patient Pre-procedure details: Preparation: Patient was prepped and draped in usual sterile fashion Sedation: Sedation type: None Anesthesia: Anesthesia method: None Procedure details: Indications: open wounds Wound location: Finger Finger location: L long finger Wound age (days): <1 Wound surface area (sq cm): 5 Debridement performed: No Dressing: Dressing applied: Adaptic dressing (bacitracin) Wrapped with: Bulky dressing Post-procedure details: Procedure completion: Tolerated Comments: Soaked wound in Betadine, rinsed with TXA and normal saline. Applied bacitracin, Adaptic dressing and bulky dressing over top. [facility] XR Hand - left 3 Viewson No acute fracture or dislocation identified. Extensive soft tissue swelling of the third digit distal aspect. Report Dictated on Electronically Signed By: Mack Andrade MD Electronically Signed Date/Time: 09/07/2024 2:44 PM EST [facility] Patient Name: MARIETTA DOBSON : 1970 Exam Date/Time: 09/07/2024 13:51 Procedure: XR HAND 3+ VIEWS LEFT Ordering Provider: KAMINSKI BRIGID Reason For Exam: middle finger avulsion injury LEFT HAND CLINICAL INDICATION: Middle finger avulsion injury, pain AP, lateral, and oblique plain film views of the left hand were obtained. COMPARISON: None FINDINGS: There is no fracture or dislocation. Distal predominant interphalangeal joints osteoarthritic changes are noted along with first carpometacarpal joint osteoarthritis. No bone lesion is identified. Soft tissue swelling and heterogeneity of the third digit distal predominant aspect observed, best characterized on AP and dedicated lateral imaging. [facility] Mack Andrade MD - 09/07/2024 Patient Name: MARIETTA DOBSON : 1970 Exam Date/Time: 09/07/2024 13:51 Procedure: XR HAND 3+ VIEWS LEFT Ordering Provider: KAMINSKI BRIGID Reason For Exam: middle finger avulsion injury LEFT HAND CLINICAL INDICATION: Middle finger avulsion injury, pain AP, lateral, and oblique plain film views of the left hand were obtained. COMPARISON: None FINDINGS: There is no fracture or dislocation. Distal predominant interphalangeal joints osteoarthritic changes are noted along with first carpometacarpal joint osteoarthritis. No bone lesion is identified. Soft tissue swelling and heterogeneity of the third digit distal predominant aspect observed, best characterized on AP and dedicated lateral imaging. IMPRESSION: No acute fracture or dislocation identified. Extensive soft tissue swelling of the third digit distal aspect. Report Dictated on Electronically Signed By: Mack Andrade MD Electronically Signed Date/Time: 09/07/2024 2:44 PM EST [employer] Radiology Study observation (narrative) [employer] XR Hand - left 3 ViewsOrdere d By: Mack Andrade on 09-07-2024 [employer] Work Phone: Colonoscopy Reporton 022 Colonoscopy Report [facility] Medical Records Department [address] [place] [id number] Colonoscopy Report MR#: [id number] Acct: [id number] Name: MARIETTA DOBSON Rep #: [id number] : 1970 51 From: Joseph Archibald MD PCP: Dr. Jimmy Carpio MD Status:[facility] Patient Name: Marietta Dobson Procedure Date: 01/22/2022 9:28 AM Date of : 1970 Age: 51 Procedure: Colonoscopy Indications: Screening for colorectal malignant neoplasm Providers: Joseph Archibald MD Medicines: Monitored Anesthesia Care Patient Profile: This is a 51 year old male. Refer to note in patient chart for documentation of history and physical. Last Colonoscopy: none. The patient's first colonoscopy is today. Complications: No immediate complications. Procedure: Pre-Anesthesia Assessment: - Prior to the procedure, a History and Physical was performed, and patient medications and allergies were reviewed. The patient's tolerance of previous anesthesia was also reviewed. The risks and benefits of the procedure and the sedation options and risks were discussed with the patient. All questions were answered, and informed consent was obtained. Prior Anticoagulants: The patient has taken no previous anticoagulant or antiplatelet agents. After reviewing the risks and benefits, the patient was deemed in satisfactory condition to undergo the procedure. After I obtained informed consent, the scope was passed under direct vision. Throughout the procedure, the patient's blood pressure, pulse, and oxygen saturations were monitored continuously. The Colonoscope was introduced through the anus and advanced to the cecum, identified by appendiceal orifice and ileocecal valve. The colonoscopy was performed without difficulty. The patient tolerated the procedure well. The quality of the bowel preparation was good. Scope In: 9:38:10 AM Scope Withdrawal Time 0 hours 4 minutes 14 seconds Scope Out: 9:44:59 AM Total Procedure Duration Time 0 hours 6 minutes 49 seconds Findings: The entire examined colon appeared normal on direct and retroflexion views. Impression: - The entire examined colon is normal on direct and retroflexion views. - No specimens collected. Recommendation: - Discharge patient to home. - Resume previous diet. - Continue present medications. - Repeat colonoscopy in 10 years for screening purposes. Procedure Code(s): --- Professional --- 31601, Colonoscopy, flexible; diagnostic, including collection of specimen(s) by brushing or washing, when performed (separate procedure) Diagnosis Code(s): --- Professional --- Z12.11, Encounter for screening for malignant neoplasm of colon CPT copyright 2017 [employer]. All rights reserved. The codes documented in this report are preliminary and upon oxide furnace tender review may be revised to meet current compliance requirements. Joseph Archibald MD 01/22/2022 9:53:38 AM This report has been signed electronically. Number of Addenda: 0 Note Initiated On: 01/22/2022 9:28 AM 01/22/22 0953 Date Joseph Archibald MD Cosign Signature: Date (if indicated) CC: Dr. Joseph Archibald MD; Dr. Jimmy Carpio MD Date Dictated: 01/22/22927 Date Transcribed: As400 Analyst: NATALIYA Signed Normal [facility] Basic Metabolic Profile (BMP )on 12-14-2021 BUN/CRE 23.1 RATIO High 10-20 [facility] Comment on above: Performed By: #### L 500.2500, L506.1000, L500.4100 #### [facility] [address] [place], [address] CA,Total 9.2 mg/dL Normal 8.5-10.1 [facility] Comment on above: Performed By: #### L 500.2500, L506.1000, L500.4100 #### [facility] [address] [place], [address] Chloride [Moles/Vol] 107 mmol/L Normal 98-107 [facility] Comment on above: Performed By: #### L 500.2500, L506.1000, L500.4100 #### [facility] [address] [place], [address] CO2 [Moles/Vol] 25.0 mmol/L Normal 21.0-32.0 [facility] Comment on above: Performed By: #### L 500.2500, L506.1000, L500.4100 #### [facility] [address] [place], [address] Creatinine [Mass/Vol] 0.78 mg/dL Normal 0.70-1.30 [facility] Comment on above: Result Comment: The validity of the calculated GFR GFRAA in patients over 70 years has not been determined. Clinical correlation is essential. Performed By: #### L 500.2500, L506.1000, L500.4100 #### [facility] [address] [place], [address] EST GFR - AA 135 mL/min Normal >60 [facility] Comment on above: Result Comment: Afri can [employer] GFR Calc Performed By: #### L 500.2500, L506.1000, L500.4100 #### [facility] [address] [place], [address] GAP 7 Normal 5-15 [facility] Comment on above: Performed By: #### L 500.2500, L506.1000, L500.4100 #### [facility] [address] [place], [address] GFR/1.73 sq M.predicted among non-blacks MDRD (S/P/Bld) [Vol rate/Area] 112 mL/min/{1.73_m2} Normal >60 [facility] Comment on above: Result Comment: Non- GFR Calc Performed By: #### L 500.2500, L506.1000, L500.4100 #### [facility] [address] [place], [address] Glucose [Mass/Vol] 93 mg/dL Normal 74-106 [facility] Comment on above: Performed By: #### L 500.2500, L506.1000, L500.4100 #### [facility] [address] [place], [address] Potassium [Moles/Vol] 4.1 mmol/L Normal 3.5-5.1 [facility] Comment on above: Performed By: #### L 500.2500, L506.1000, L500.4100 #### [facility] [address] [place], [address] Sodium [Moles/Vol] 139 mmol/L Normal 136-145 [facility] Comment on above: Performed By: #### L 500.2500, L506.1000, L500.4100 #### [facility] [address] [place], [address] Urea nitrogen [Mass/Vol] 18 mg/dL Normal 7-18 [facility] Comment on above: Performed By: #### L 500.2500, L506.1000, L500.4100 #### [facility] [address] [place], [address] Basophil percentageon 2021 Chloride [Moles/Vol] 107 mmol/L 98-107 [facility] Work Phone: Cholesterol [Mass/Vol] 183 mg/dL <200 [facility] Work Phone: Comment on above: <200 mg/dL Desirable 200-240 mg/dL Borderline >240 mg/dL High Risk Glucose [Mass/Vol] 93 mg/dL 74-106 [facility] Work Phone: Potassium [Moles/Vol] 4.1 mmol/L 3.5-5.1 [facility] Work Phone: Sodium [Moles/Vol] 139 mmol/L 136-145 [facility] Work Phone: Triglyceride [Mass/Vol] 60 mg/dL <199 [facility] Work Phone: Comment on above: The drugs N-Acetylcy steine and Metamizole may falsely depress this assay.Serum Triglycerides Reference Interval Normal <150 mg/dL Borderline high 150 - 199 mg/dL High 200 - 499 mg/dL Very High > or = 500 mg/dL Laboratory - Chemistry and C hemistry - challengeon 12-14-2021 CO2 [Moles/Vol] 25.0 mmol/L 21.0-32.0 [facility] Work Phone: Urea nitrogen/Creatinine [Mass ratio] 23.1 mg/mg 10-20 [facility] Work Phone: Lipid Profileon 12-14-2021 Cholesterol [Mass/Vol] 183 mg/dL Normal 200 [facility] Comment on above: Result Comment: <200 mg/dL Desirable 200-240 mg/dL Borderline >240 mg/dL High Risk Performed By: #### L 500.2500, L506.1000, L500.4100 #### [facility] [address] [place], [address] Cholesterol in HDL [Mass/Vol] 54 mg/dL Normal [facility] Comment on above: Result Comment: The drugs N-Acetylcysteine and Metamizole may falsely depress this assay. Reference Range HDL <40 mg/dL Low HDL Cholesterol HDL >or= 60 mg/dL High HDL Cholesterol Performed By: #### L 500.2500, L506.1000, L500.4100 #### [facility] [address] [place], [address] Cholesterol in LDL [Mass/Vol] 117 mg/dL Normal 0-130 [facility] Comment on above: Performed By: #### L 500.2500, L506.1000, L500.4100 #### [facility] [address] [place], [address] Cholesterol in VLDL [Mass/Vol] 12 mg/dL Normal 5-40 [facility] Comment on above: Performed By: #### L 500.2500, L506.1000, L500.4100 #### [facility] [address] [place], [address] Triglyceride [Mass/Vol] 60 mg/dL Normal [facility] Comment on above: Result Comment: The drugs N-Acetylcysteine and Metamizole may falsely depress this assay. Serum Triglycerides Reference Interval Normal <150 mg/dL Borderline high 150 - 199 mg/dL High 200 - 499 mg/dL Very High > or = 500 mg/dL Performed By: #### L 500.2500, L506.1000, L500.4100 #### [facility] [address] [place], [address] No Panel Informationon 12-14 Estimated GFR (MDRD) Amer 135 mL/min >60 [facility] Work Phone: Comment on above: GFR Calc Estimated GFR (MDRD) Non-Af Amer 112 mL/min >60 [facility] Work Phone: Comment on above: Non- GFR Calc Vitamin D 25-Hydroxy 34.0 ng/mL [facility] Work Phone: Comment on above: Vitamin D 25(OH) Sta tus Range Deficiency <20 ng/mL (50nmol/L) Insufficiency 20 - 30 ng/mL (50 - 75 nmol/L) Sufficiency 30 - 100 ng/mL (75 - 250 nmol/L) Toxicity >100 ng/mL (>250 nmol/L) Serum or plasma calcium nannette urement (mass/volume)on 12-14-2021 Calcium [Mass/Vol] 9.2 mg/dL 8.5-10.1 [facility] Work Phone: Serum or plasma cholesterol in HDL measurement (mass/volume)on 12-14-2021 Cholesterol in HDL [Mass/Vol] 54 mg/dL >40 [facility] Work Phone: Comment on above: The drugs N-Acetylcy steine and Metamizole may falsely depress this assay. Reference Range HDL <40 mg/dL Low HDL Cholesterol HDL >or= 60 mg/dL High HDL Cholesterol Serum or plasma cholesterol in VLDL measurement (mass/volume)on 12-14-2021 Cholesterol in VLDL [Mass/Vol] 12 mg/dL 5-40 [facility] Work Phone: Serum or plasma creatinine m easurement (mass/volume)on 12-14-2021 Creatinine [Mass/Vol] 0.78 mg/dL 0.70-1.30 [facility] Work Phone: Comment on above: The validity of the calculated GFR & GFRAA in patients over 70 years has not been determined. Clinical correlation is essential. Serum or plasma low density lipoprotein (LDL) cholesterol measurement (mass/volume)on 12-14-2021 Cholesterol in LDL [Mass/Vol] 117 mg/dL 0-130 [facility] Work Phone: Serum or plasma urea nitroge n measurement (mass/volume)on 12-14-2021 Urea nitrogen [Mass/Vol] 18 mg/dL 7-18 [facility] Work Phone: Thin prep Papanicolaou smear with manual screeningon 12-14-2021 Thin prep Papanicolaou smear with manual screening 7 5-15 [facility] Work Phone: Vitamin D,25 Hydroxyon 12-14 Vitamin D 25-OH 34.0 ng/mL Normal [facility] Comment on above: Result Comment: Maricruz min D 25(OH) Status Range Deficiency <20 ng/mL (50nmol/L) Insufficiency 20 - 30 ng/mL (50 - 75 nmol/L) Sufficiency 30 - 100 ng/mL (75 - 250 nmol/L) Toxicity >100 ng/mL (>250 nmol/L) Performed By: #### L 500.2500, L506.1000, L500.4104 #### [facility] [address] [place], [place], [id number] Urgent Care Visit Reporton 1 Urgent Care Visit Report [facility] [address] [place] [address] [address] [place], [place] [address] OFFICE VISIT Date of Service: 05/21/21 MR#: [id number] Acct: [id number] Name: MARIETTA DOBSON Rep #: [id number] : 1970 Provider: HARSHA Dillon Age/Sex: 50/M Location: [facility] Status: Signed Intake Vital Signs 05/21/21 07:34 Height 6 ft 2.5 in Weight: 222 lb 2 oz BMI 28.1 BP 118/74 Blood Pressure Location Lt brachial Position Sitting Respiration 16 Pulse 82 Pulse Source Monitor Temp 98.1 F Temp Source Temporal Pulse Oximetry (%) 98 Oxygen Delivery Method room air Intake Visit Reasons: PAIN IN LEFT FT HPI HPI Details: MARIETTA DOBSON, is a 50 M who presents to the office today for complaint of pain in the left foot. Patient states that he believes he has plantar fasciitis as he is been working in a new area at work and has been wearing new boots since working in that area. Patient states the left foot pain started approximately 6 weeks ago and has worsened since then. He states he does have an appointment with his orthopedic at the end of this week however wants to take time off of work and is only able to do so if he has a work note. He denies any trauma to the foot or previous injuries. He denies numbness, tingling or loss range of motion. No other associated symptoms or alleviating/aggravatin g factors. ROS Const Constitutional: Positive for other (6 system ROS completed with pertinent findings in the HPI otherwise normal.) Exam Const General: cooperative and healthy appearing Resp Effort Inspection: normal respiratory effort Cardio Rate: regular rate Skin General: no rashes or lesions noted Neuro General: patient alert and CN's II-XI intact bilaterally Extrem General: full ROM and capillary refill normal Other: Pain to palpation of the arch of the left foot with no obvious deformity to the same. Psych Appearance: grossly normal Mental Status: mental status grossly normal Coding Level of Care Code Off vis,new,level 3 Diagnoses Plantar fasciitis of left foot M72.2 Assessment and Plan Assessment and Plan (1) Plantar fasciitis of left foot: Status: Acute Plan - Mervin MCLEOD, PA: Patient given a note for work and Medrol Dosepak as prescribed today. Patient advised of symptomatic management techniques as well as potential red flags and when appropriate to report to the ED. Patient verbalized understanding and agreement with all the above. Plan Details Other Medications: New: methylprednisolone (Medrol (Manpreet)) 4 mg PO PER PKG DIR 5 days 21 tabs 0RF 05/21/21 0805 Date Mervin MCLEOD Cosigner Signature: Date (if applicable) CC: Normal [facility] XR SHOULDER MINIMUM 2 VIEWS RIGHTon 06-30-2019 XR SHOULDER MINIMUM 2 VIEWS RIGHT ORIGINAL XR SHOULDER MINIMUM 2 VIEWS RIGHT CLINICAL STATEMENT: reduction Comparison: Shoulder radiograph 06/30/2019 FINDINGS: Previously identified identified short dislocation has been reduced. The coracoclavicular and acromioclavicular relationships are maintained. The humerus appears appropriately seated within the glenoid. The included thoracic structures are unremarkable. IMPRESSION: Reduction of previously identified shoulder dislocation. I have personally reviewed the images of this examination and agree with the resident's findings and interpretation. Interpreted By: Giovanny Carvajal MD Preliminary Report By: Jax Noriega MD Electronically Signed By: Giovanny Carvajal MD Dictated Date: 06/30/2019 6:32:08 PM Prelim Date: 06/30/2019 6:33:31 PM Sign Date: 06/30/2019 6:50:14 PM Ordering Provider:Kaden Chun [facility] ([place] XR SHOULDER MINIMUM 2 VIEWS RIGHT ORIGINAL XR SHOULDER MINIMUM 2 VIEWS RIGHT CLINICAL STATEMENT: fall injured. Comparison: None FINDINGS: There is anterior dislocation of the shoulder joint. The coracoclavicular and acromioclavicular relationships are maintained. The included thoracic structures are unremarkable. IMPRESSION: Anterior and inferior shoulder dislocation. I have personally reviewed the images of this examination and agree with the resident's findings and interpretation. Interpreted By: Giovanny Carvajal MD Preliminary Report By: Jax Noriega MD Electronically Signed By: Giovanny Carvajal MD Dictated Date: 06/30/2019 6:13:35 PM Prelim Date: 06/30/2019 6:15:27 PM Sign Date: 06/30/2019 6:27:05 PM Ordering Provider:Kaden Chun [facility]) Vital Signs Date Time Vital Sign Value Performing Clinician Henok barrera 10-29-2024 14:13-0400 Diastolic blood pressure 86 mm[Hg] Shirley Grover MD Work Phone: [facility] 10-29-2024 14:13-0400 Systolic blood pressure 132 mm[Hg] Shirley Grover MD Work Phone: [facility] 10-29-2024 14:00-0400 Body height 188 cm Shirley Grover MD Work Phone: [facility] 10-29-2024 14:00-0400 Body mass index (BMI) [Ratio] 27.6 kg/m2 Shirley Grover MD Work Phone: [facility] 10-29-2024 14:00-0400 Body weight 97.52 kg Shirley Grover MD Work Phone: [facility] 10-19-2024 14:52-0400 Body height 188 cm Kia McGreal PA-C Work Phone: [facility] [employer] 10-19-2024 14:52-0400 Body mass index (BMI) [Ratio] 27.6 kg/m2 Kia Cadenareal PA-C Work Phone: [facility] [employer] 10-19-2024 14:52-0400 Body weight 97.52 kg Kia Cadenareal PA-C Work Phone: [facility] [employer] 09-28-2024 15:34-0500 Body height 188 cm Kia Cadenareal PA-C Work Phone: [facility] [employer] 09-28-2024 15:34-0500 Body mass index (BMI) [Ratio] 27.6 kg/m2 Kia Surinderreal PA-C Work Phone: [facility] [employer] 09-28-2024 15:34-0500 Body weight 97.52 kg Kia Cadenareal PA-C Work Phone: [facility] [employer] 09-28-2024 15:34-0500 Diastolic blood pressure 93 mm[Hg] Kia Cadenareal PA-C Work Phone: [facility] [employer] 09-28-2024 15:34-0500 Heart rate 82 /min Kia Cadenareal PA-C Work Phone: [facility] [employer] 09-28-2024 15:34-0500 Systolic blood pressure 123 mm[Hg] Kia Cadenareal PA-C Work Phone: [facility] [employer] 09-15-2024 14:48-0500 Body height 188 cm Kia Cadenareal PA-C Work Phone: [facility] [employer] 09-15-2024 14:48-0500 Body mass index (BMI) [Ratio] 27.6 kg/m2 Kia McGreal PA-C Work Phone: [facility] [employer] 09-15-2024 14:48-0500 Body weight 97.52 kg Kia Cadenareal PA-C Work Phone: [employer] 09-08-2024 09:31-0500 Body height 188 cm Reg Dillard MD Work Phone: [employer] 09-08-2024 09:31-0500 Body mass index (BMI) [Ratio] 27.6 kg/m2 Reg Dillard MD Work Phone: [employer] 09-08-2024 09:31-0500 Body weight 97.52 kg Reg Dillard MD Work Phone: [employer] 09-07-2024 15:20-0500 Diastolic blood pressure 111 mm[Hg] Padmini Yamilex DO Work Phone: [employer] 09-07-2024 15:20-0500 Heart rate 73 /min Padmini Yamilex DO Work Phone: [employer] 09-07-2024 15:20-0500 Respiratory rate 16 /min Padmini Aqdot DO Work Phone: [employer] 09-07-2024 15:20-0500 SaO2% (BldA) [Mass fraction] 98 % Padmini Yamilex DO Work Phone: [employer] 09-07-2024 15:20-0500 Systolic blood pressure 137 mm[Hg] Padmini Yamilex DO Work Phone: [employer] 09-07-2024 13:42-0500 Body height 188 cm Padmini Yamilex DO Work Phone: [employer] 09-07-2024 13:42-0500 Body mass index (BMI) [Ratio] 27.6 kg/m2 Padmini Yamilex DO Work Phone: [employer] 09-07-2024 13:42-0500 Body temperature 98.1 [degF] Padmini Yamilex DO Work Phone: [employer] 09-07-2024 13:42-0500 Body weight 97.52 kg Padmini Yamilex DO Work Phone: [employer] 01-22-2022 10:05-0400 Body temperature 97.7 [degF] [facility] Work Phone: 01-22-2022 10:05-0400 Diastolic blood pressure 84 mm[Hg] [facility] Work Phone: 01-22-2022 10:05-0400 Heart rate 64 /min [facility] Work Phone: 01-22-2022 10:05-0400 Respiratory rate 16 /min [facility] Work Phone: 01-22-2022 10:05-0400 SaO2% (BldA) [Mass fraction] 98 % [facility] Work Phone: 01-22-2022 10:05-0400 Systolic blood pressure 120 mm[Hg] [facility] Work Phone: 01-22-2022 08:27-0400 Body height 187.96 cm [facility] Work Phone: 01-22-2022 08:27-0400 Body mass index (BMI) [Ratio] 27.4 kg/m2 [facility] Work Phone: 01-22-2022 08:27-0400 Body weight 96.97 kg [facility] Work Phone: 12-20-2021 13:52-0400 Body mass index (BMI) [Ratio] 26.9 kg/m2 [facility] Work Phone: 12-20-2021 13:52-0400 Body weight 95.25 kg [facility] Work Phone: Encounters Encounter Date Encounter Type Care Provider Facility Start: 10-29-2024 End: 10-29-2024 Office outpatient new 30 minutes Shirley Grover MD Work Phone: [facility] Comment on above: Arthritis of left kn ee Start: 10-29-2024 End: 10-29-2024 ambulatory SHIRLEY GROVER [facility] Start: 10-19-2024 End: 10-19-2024 Postop follow up visit related to original tino Muñoz KAYLYNN Work Phone: [facility] Comment on above: Avulsion of nail of left middle finger (Primary Dx); Laceration of left middle finger without foreign body with damage to nail, subsequent encounter; Open wound of left middle finger Start: 10-19-2024 End: 10-19-2024 [facility] Start: 09-28-2024 End: 09-28-2024 Postop follow up visit related to original px Kia Muñoz HARSHA-Tianna Work Phone: [facility] Comment on above: Avulsion of nail of left middle finger (Primary Dx); Laceration of left middle finger without foreign body with damage to nail, subsequent encounter; Open wound of left middle finger Start: 09-28-2024 End: 09-28-2024 [facility] Start: 09-15-2024 End: 09-15-2024 Postop follow up visit related to original px Kia Purvisanahi CHAIDEZ Work Phone: [facility] Comment on above: Avulsion of nail of left middle finger (Primary Dx); Laceration of left middle finger without foreign body with damage to nail, subsequent encounter; Open wound of left middle finger Start: 09-15-2024 End: 09-15-2024 ambulatory KIA [facility] Start: 09-09-2024 End: 09-13-2024 Telephone encounter Reg Dillard MD Work Phone: [facility] [employer] Comment on above: Worker's Compensatio n Start: 09-08-2024 End: 09-08-2024 Office outpatient new 30 minutes Reg Dillard MD Work Phone: [facility] Comment on above: Laceration of left m iddle finger without foreign body with damage to nail, initial encounter (Primary Dx); Avulsion of nail of left middle finger; Open wound of left middle finger Start: 09-08-2024 End: 09-08-2024 ambulatory REG DILLARD [facility] Start: 09-07-2024 End: 09-07-2024 Subsequent hospital visit by physician [facility] Comment on above: Arrived Start: 09-07-2024 End: 09-07-2024 Emergency department patient visit Padmini Kaminski DO Work Phone: [facility] ED Comment on above: Open wound of left m iddle finger (Primary Dx) Start: 01-22-2022 Non-patient / Non-visit [facility] Start: 01-22-2022 End: 01-22-2022 Admission to same day surgery center [facility] Start: 12-20-2021 Non-patient / Non-visit [facility] Start: 12-14-2021 End: 12-14-2021 Patient encounter procedure [facility] Procedures Date Procedure Procedure Detail Performing Clinician Start: 09-07-2024 Radex hand minimum 3 views Padmini Kaminski DO Work Phone: Start: 09-07-2024 PB ED PLACEHOLDER Carter Kaminski DO Work Phone: Start: 01-22-2022 Colonoscopy [facility] Plan of Treatment Date Care Activity Detail Author Start: 2046 RSV Immunization for Adults (1 - 1-dose 75+ series) RSV Immunization for Adults (1 - 1-dose 75+ series) [facility] Start: 09-07-2034 DTaP/Tdap/Td Vaccines (2 - Td or Tdap) DTaP/Tdap/Td Vaccines (2 - Td or Tdap) [facility] Start: 09-07-2034 DTaP/Tdap/Td Vaccines (3 - Td or Tdap) DTaP/Tdap/Td Vaccines (3 - Td or Tdap) [facility] Start: 10-29-2024 End: 10-29-2024 Patient encounter procedure 10/29/2024 2:15 PM EDT Office Visit [facility] [address] [place] [phone] Shirley Grover MD [address] [facility] [address] [place], [place] [id number] [facility] Start: 10-19-2024 End: 10-19-2024 Patient encounter procedure 10/19/2024 3:00 PM EDT Office Visit [facility] [address] [place] [phone] Kia Muñoz PA-C [address] [facility] [address] [place], [place] [id number] [facility] Start: 09-28-2024 End: 09-28-2024 Patient encounter procedure 09/28/2024 3:00 PM EST Office Visit [facility] [address] [place] [phone] Kia Muñoz PA-C [address] [facility] [address] [place], [place] [id number] [facility] Start: 09-15-2024 End: 09-15-2024 Patient encounter procedure 09/15/2024 2:45 PM EST Office Visit [facility] [address] [place] [phone] Kia Muñoz PA-C [address] [facility] [address] [place], [place] [id number] [facility] Start: 09-08-2024 End: 09-08-2024 Patient encounter procedure 09/08/2024 9:30 AM EST Office Visit [facility] [address] [place] [phone] Reg Dillard MD [address] [facility] [address] [place] [address] [facility] Start: 04-04-2024 COVID-19 Vaccine ( season) COVID-19 Vaccine ( season) [facility] Start: 04-04-2024 Influenza vaccination Influenza Vaccine (#1) [facility] Start: 01-22-2022 Patient discharge [facility] Work Phone: Start: 2021 Pneumococcal Vaccine: 50+ Years (1 of 1 - PCV) Pneumococcal Vaccine: 50+ Years (1 of 1 - PCV) [facility] Start: 2021 Zoster Vaccines (1 of 2) Zoster Vaccines (1 of 2) [facility] Start: 1990 Hepatitis B Vaccines (1 of 3 - 19+ 3-dose series) Hepatitis B Vaccines (1 of 3 - 19+ 3-dose series) [facility] Start: 1989 Diabetes mellitus screening Diabetes Screening [facility] Start: 1989 Hepatitis C screening Hepatitis C Screening [facility] Start: 1983 Depression Screening Depression Screening [facility] Start: 1972 MMR Vaccines (1 of 1 - Standard series) MMR Vaccines (1 of 1 - Standard series) [facility] Start: 1971 HIV screening HIV Screening [facility] Start: 1971 Lipid panel Lipid Panel [facility] Start: 1971 Screening for malignant neoplasm of colon [facility] Patient referral [facility] Work Phone: Immunizations Immunization Date Immunization Notes Care Provider Fa cility 09-07-2024 tetanus toxoid, redu garry diphtheria toxoid, and acellular pertussis vaccine, adsorbed Padmini Kaminski DO Work Phone: [facility] Payers Date Payer Category Payer Worker's Compensation [id number] 2024 Unknown [id number] 2018 [employer] - [employer] [id number] 2018 Unknown [id number] Self-pay SELF PAY INSURANCE [id number] Social History Date Type Detail Facility [facility] Work Phone: Start: 1970 Sex Assigned At Male [facility] Work Phone: Start: 01-22-2022 [facility] Work Phone: Start: 09-07-2024 Tobacco smoking stat [facility] Never smoked tobacco [facility] Start: 09-07-2024 Tobacco use and exposure Smokeless tobacco non-user [facility] Start: 09-07-2024 End: 10-29-2024 Alcoholic beverage intake Ex-drinker (finding) [facility] Start: 09-07-2024 End: 10-29-2024 History of Social function [facility] Start: 09-07-2024 End: 10-29-2024 Tobacco use panel [facility] Start: 09-07-2024 Alcohol [facility] Start: 1970 Sex assigned at Not on file [facility] Start: 09-07-2024 Sex Male (finding) [facility] Goals Date Patient Goal Desired Activity /State Mental Status Date Assessment Result Facility 01-22-2022 Cognitive function Level Of Consciousness Drowsy [facility] Work Phone: 01-22-2022 Cognitive function Patient Tiago cardenas Person;Place;Time [facility] Work Phone: Clinical Notes 01-22-2022 to 10-29-2024 Shirley Grover MD - 10/29/2024 2:15 PM EDTNatadiel Muñoz PA-C - 10/19/2024 3:00 PM EDTPatient InstructionsTelephone Encounter - Jenniferwalt Sanchez ATC - 10/07/2024 12:20 PM ESTPatient Instructions Note Date & Type Note Facility 10-29-2024 History of Presen t illness Narrative [facility] [id number] [facility] [address] [facility] [id number] Dept: [phone] Dept Marietta Dobson 1970 [id number] 10/29/2024 Chief Complaint Patient presents with New Patient Left knee pain HPI: Marietta is a 54 y.o. male who is here today for evaluation of his left knee. Their symptoms have been on and off for 10 years but got worse a couple of weeks ago. The current symptoms started after no recent injury. 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 The patient complains of stiffness and swelling. The pain is located medial and posterior. Activities that make the pain worse include going up/down stairs and being on his feet long periods of time. Previous Treatments NSAIDs: Yes - Aleve Helpful Injection: No - Has never received an injection Bracing: No Therapy: No - Has not attempted formal therapy Surgery: No- Has not had previous surgery on the symptomatic extremity MRI: No Has not had an MRI The patient is employed as a production maintenance mechanic. Marietta is referred by self. SANE score: 80 No Known Allergies No current outpatient medications on file prior to visit. No current facility-administered medications on file prior to visit. No past medical history on file. No past surgical history on file. Social History Socioeconomic History Marital status: Spouse name: Not on file Number of children: Not on file Years of education: Not on file Highest education level: Not on file Occupational History Not on file Tobacco Use Smoking status: Never Smokeless tobacco: Never Substance and Sexual Activity Alcohol use: Not Currently Comment: occasionally Drug use: Never Sexual activity: Not on file Other Topics Concern Not on file Social History Narrative Not on file Social Drivers of Health Financial Resource Strain: Not on file Food Insecurity: Not on file Transportation Needs: Not on file Physical Activity: Not on file Stress: Not on file Social Connections: Not on file Intimate Partner Violence: Not on file Housing Stability: Not on file No family history on file. Physical Exam: BP 132/86 Ht 6' 2 (1.88 m) Wt 215 lb (97.5 kg) BMI 27.60 kg/m MUSCULOSKELETAL: Hip Exam: no pain elicited with internal and external range of motion. Lumbar Exam: negative same side and contralateral straight leg raise. Left Knee: Palpation reveals no tenderness Non tender with palpation over the remaining bony prominences or palpable structures around the knee. Negative homans sign at the calf. Patellofemoral exam reveals moderate crepitus with patellar compression and knee ROM and no significant pain or apprehension with patellar compression or manipulation Inspection of the knee reveals no obvious deformity or swelling, no obvious skin lesion, erythema, or discoloration. Mild effusion. Neutral alignment. Scars include none. ROM: RIGHT LEFT Extension AROM Full PROM Same AROM Full PROM Same Flexion AROM 130 PROM Same AROM 130 PROM Same Sensation: Sensation intact over the medial and anterior thigh, medial and posterolateral calf, dorsal and plantar foot. Pulse: Palpable DP pulse. Reflexes: 2+ patellar reflexes. Motor: Motor is 5/5 with knee extension, flexion. Ligamentous Examination: ACL testing reveals negative howard with firm endpoint. Negative pivot shift. PCL testing reveals negative posterior drawer testing. MCL testing reveals negative valgus stress with firm endpoint at 0 and 30 degrees. LCL testing reveals negative varus stress with firm endpoint at 0 and 30 degrees. Special Tests (as indicated): Pain with hyperextension: negative Pain with hyperflexion: negative Mendoza's test: No significant pain elicited with mendoza testing Thessaly test (Standing wt-bearing pivoting): N/A Imaging: Knee Xrays: Plain films were taken today and reviewed in office. Weight bearing 4 views including AP, and PA flex views of bilateral knees, lateral and sunrise views of the affected knee(s) show mild to moderate narrowing in the left medial compartments with associated sclerosis and osteophyte formation in affected compartments noted above. 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 No evidence of fracture or other osseous abnormality. No evidence of obvious malignant bony lesions. Other Diagnostic Testing: None IMPRESSION: Diagnosis Plan 1. Arthritis of left knee PROCEDURE: None PLAN: The patients history, exam, and imaging is consistent with acute on chronic pain consistent with mild to moderate arthritis. He does report a basketball related injury about 10 years ago where he likely caused a meniscus tear and MCL tear. 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 We discussed overall prognosis and general conservative versus potential surgical treatment option. Given his flare of symptoms and likely more so an arthritic flare, we discussed conservative treatments to continue. He is going to proceed with activity modification and anti-inflammatory medications. If he has worsening or more persistent symptoms, he will call for reevaluation and we may discuss cortisone injection versus MRI at that time. All his questions were answered. Marietta elected to proceed with NSAIDs and activity modification. Follow-up: Marietta will followup with me on an as needed basis. He knows to call the office with any questions or concerns in the interim. Future Imaging: NONE Shirley Grover MD Orthopaedic Sports Medicine [facility] Department of Orthopaedics and Sports Medicine 10/29/2024 at 2:29 PM (Please note that portions of this note may have been completed with a voice recognition program. Efforts were made to edit the dictations but occasionally words are mis-transcribed.) documented in this encounter [facility] 10-19-2024 History of Presen t illness Narrative Images from the original note were not included. Subjective: Marietta is approximately 6 week(s) s/p left long finger nail avulsion/laceration. Pain is minimal, moderate when he bumps it. He is no longer taking anything for pain. He reports improvement in pain. The patient has been compliant with non-weight bearing restrictions in soft dressing. He admits to numbness and tingling. The patient has been performing daily soaks and dressing changes. Today is the first day with no drainage. The patient feels his finger continues to gradually improve as expected. He reports persistent moderate hypersensitivity at the tip of his finger as well as paresthesias along the radial and ulnar aspect of his middle finger pulp. He has remained on light duty which he feels has been working well. He eventually would like to return to full duty but feels he may need additional time. He has had scant intermittent drainage from the tip of his finger but over the past 24 hours has not noted any drainage whatsoever. He continues to perform soaks and dressing changes as instructed. He has no additional concerns today regarding his hand. He does request a referral to a specialist to evaluate and treat his knee pain. He has a history of meniscus/ligament injury. Objective: Ht 6' 2 (1.88 m) Wt 215 lb (97.5 kg) BMI 27.60 kg/m Ortho Exam Focused Exam of the Left Upper Extremity Skin: healing laceration over the middle finger without evidence of infection which is dry and scabbed with no active or expressible drainage, no signs of infection, new nail plate comprises the proximal third of the nailbed Clinical Picture: Edema: mild edema surrounding the long finger Palpation: tender to palpation over the long finger wound as expected with mild hypersensitivity ROM: LEFT long finger MCP (nl 0-45 H/90 ) PIP (nl 0 /100 ) DIP (nl 0 -80 ) Tip to Palm EXTENSION 0 0 0 FLEXION Not measured Not measured Not measured able to contact *(Passive values entered only if different than active; otherwise = AROM) Remaining fingers flex to palm. Active wrist range of motion: full flexion/ full extension. Pronation full/ Supination full. Motor: Intact in the hand - able to fire AIN, PIN, and Ulnar nerves Sensation: to light touch is normal in the median, ulnar, and radial nerve distributions Perfusion: Brisk capillary refill in all 5 digits XRay: None Assessment Diagnosis Plan 1. Avulsion of nail of left middle finger Plan I would like Marietta to continue daily soaks and soft dressing changes until it has been 2-3 days since last noting drainage from his wound. He can then progress to wearing a soft dressing only or silicone/cotton sleeve over the tip of the finger for protection and hypersensitivity when active. This can be discontinued once he no longer has scabbing over the wound and feels comfortable without a finger covering. Finger range of motion was encouraged. Home going therapy exercises were demonstrated today in the office and detailed exercise instructions are provided to the patient. The patient is to remain partial weightbearing through the hand until the wound is completely healed and then can begin gentle weightbearing as tolerated. The patient was advised to gradually advance weightbearing as tolerated using pain as a guide. Expected recovery course was discussed with the patient. He was recommended desensitization exercises. He will continue light duty until November 15 and then can return to full duty without restrictions. He understands that he can reach out with any concerns in the interim or if he does not feel he can proceed with returning to full duty as planned. Otherwise, if he is recovering well as expected, he can follow up in the office on an as needed basis. Their questions were answered and are comfortable with the plan. Weight Bearing: Partial Weight Bearing (no more than 2-5lbs) until wound is completely healed then WBAT Rehabilitation: Home Exercises: full range of motion and to be partial until wound healed then gradual weight bearing. Instructions reviewed today in office. I plan to see Marietta back on an as needed basis to see how he is doing. Marietta knows to call the office with any questions or concerns in the interim. Future Imaging: None [facility] Plan Current work status: remain on light duty NWB left long finger and must keep clean and dry. He can return to work full duty on 11/15/24. C9 request: None Electronically signed by Kia Muñoz PA-C to eRg Dillard M.D. Hand & Upper Extremity Surgery 10/19/2024 at 3:05 PM. (Please note that portions of this note may have been completed with a voice recognition program. Efforts were made to edit the dictations but occasionally words are mis-transcribed.) documented in this encounter [facility] 10-19-2024 Instructions Jennifer Sanchez ATC - 10/19/2024 3:00 PM EDT Images from the original note were not included. [email or web address] Fabric/Cotton Finger Protectors/Cots: Disposable protector finger covers: THERAPY TO MAKE YOUR HANDS LESS TENDER Hand injuries are often very tender during the early healing phase. Often, tenderness in scars gets worse starting one to two weeks after injury or surgery. Unfortunately, this tenderness does not always go away by itself. The nerves in the hand are special and are more sensitive than other parts of the body. After any injury, the skin of the hand must get used to being touched again for the tenderness to go away. If you do not touch the sore areas of your hand, they may remain very sensitive and tender. The techniques of PERCUSSION and FRICTION MASSAGE outlined in this pamphlet will help speed up the process of recovery from tenderness in your hands and fingers. The goal of these exercises is to make your wounds less tender. It is normal for these exercises to be somewhat uncomfortable while doing them or shortly afterwards. If the exercises are too painful, try using less pressure. If that does not work, then give yourself a several hour break and try again. If pain again is a problem, speak with your doctor or your therapist. These exercises will not be recommended until it is safe to do them. PERCUSSION (Tapping): This technique activates the automatic reflex which makes us ignore things which are very repetitive. This reflex will dull the tenderness in areas of your hand that are touched repeatedly. Here is how to do percussion: 1. Tap lightly on the area of your hand which is tender. You can tap on the sensitive area with a finger tip of your other hand or with a light object such as a pencil. 2. Find the spot which is the most tender. 3. Note the time, and begin to tap rapidly (2-3 times a second), lightly and continuously on the most tender area. 4. Keep tapping without a break for three minutes or until you notice the feeling in the area change. The area may start to feel numb or it may simply feel a little bit less tender. 5. Take a minute rest and begin again. You may find that a different area is now the most tender spot. This exercise should be done as many times as possible during the day. It takes many thousands of taps to really change the tenderness in a sore area. The sooner you accumulate that many taps, the sooner your wounds will be more comfortable. FRICTION MASSAGE: The goal of friction massage is to STRETCH the scar tissue beneath the skin. As with percussion, it should be done many times during the day. This exercise not only helps improve tenderness, but helps restore the contour of the skin to a more normal appearance. Here is how to do friction massage: 1. Place a finger tip of your other hand against the central area of the scar. 2. Mentally note four directions that the skin can be pushed sideways: near, far, left and right. 3. With your finger tip pressed firmly against the scar and without sliding, gently but steadily push the skin to one side as if you were trying to slide the skin off of the bone. Hold this position for five seconds. 4. Briefly relax and then repeat this maneuver in one of the other directions. Make sure you attempt to slide the skin in all four directions. 5. If the scar is wider than your finger tip, repeat this stretching exercise on every point of the scar. This exercise is done without any skin lubrication. Remember to do this exercise before applying any antibiotic ointment or moisturizing creams. Patient Education Hand and Finger Exercises About this topic Your doctor may want you to do hand and finger exercises. They may: Increase blood flow to nerves, muscles, and joints in your hand Ease joint stiffness in your hand Help you heal faster after injury or surgery Help make your daily activities easier to do General Before starting with a program, ask your doctor if you are healthy enough to do these exercises. Your doctor may have you work with a inside sales trainer or physical therapist to make a safe exercise program to meet your needs. Strengthening Exercises Strengthening exercises keep your muscles firm and strong. Sit while doing these exercises. Be sure to use good posture. Start by repeating each exercise 2 to 3 times. Work up to doing each exercise 10 times. Try to do the exercises 2 to 3 times each day. Do all exercises slowly. Tendon gliding exercises using 4 positions ? Start by holding your hand with your fingers straight. Then, bend only the last two joints of your fingers and move your fingers into a hook or claw position. Next, straighten your fingers and bend your knuckles to make a flat table top position. This is also called the duckbill position. Last, make a full fist. Moving your hand into all 4 positions is one exercise. Finger and thumb bending and straightening ? Open your hand as far as you can. Spread your thumb away from the rest of your hand. Close your hand into a fist. Try to touch the tip of your thumb to the bottom of your small finger. Repeat. Finger [id number] ? Start with your hand straight and your fingers together. Spread your fingers as far apart as possible. Then, return to starting position. Blocking ? Lay your hand on the table with the palm facing up. Use the first finger of your other hand as the blocking finger. Place the tip of the blocking finger on the middle section of your finger. Now, bend and straighten just the tip of your finger. Move your blocking finger a little closer to your palm and just bend and straighten the middle joint in your finger. Thumb finger touches ? Touch the tip of your thumb to the tip of your index finger, making an o. Touch the tip of your thumb to the tip of your middle finger. Touch the tip of your thumb to the tip of your ring finger. Finally, touch the tip of your thumb to the tip of your small finger. Touching each finger to your thumb is one exercise. Thumb circles ? Hold your hand on its side with the thumb up. Move your thumb in a kalispel as wide as you can. Now, make a k[place]isp[place] going the other way. What will the results be? Ease hand pain Increase blood flow to help healing Keep muscles and joints strong and flexible Helpful tips Stay active and work out to keep your muscles strong and flexible. Be sure you do not hold your breath when exercising. This can raise your blood pressure. If you tend to hold your breath, try counting out loud when exercising. If any exercise bothers you, stop right away. Doing exercises before a meal may be a good way to get into a routine. Exercise may be slightly uncomfortable, but you should not have sharp pains. If you do get sharp pains, stop what you are doing. If the sharp pains continue, call your doctor. Where can I learn more? [employer] In[employer] https://www.nhsinform.scot/maurane bkuj-tmz-wvadezueqm/muscle-bone- and-joints/exercises/exercises-f lc-gflhx-ofgp-vnq-yghlvi-nhzzjkx s Last Reviewed Date 2021-03-06 Consumer Information Use and Disclaimer This generalized information is a limited summary of diagnosis, treatment, and/or medication information. It is not meant to be comprehensive and should be used as a tool to help the user understand and/or assess potential diagnostic and treatment options. It does NOT include all information about conditions, treatments, medications, side effects, or risks that may apply to a specific patient. It is not intended to be medical advice or a substitute for the medical advice, diagnosis, or treatment of a health care provider based on the health care provider's examination and assessment of a patient s specific and unique circumstances. Patients must speak with a health care provider for complete information about their health, medical questions, and treatment options, including any risks or benefits regarding use of medications. This information does not endorse any treatments or medications as safe, effective, or approved for treating a specific patient. [employer] and its affiliates disclaim any warranty or liability relating to this information or the use thereof. The use of this information is governed by the Terms of Use, available at https://www.[employer]/en /know/qviqcxaz-xztedsbfachew-phc ms Copyright Copyright 2021 [employer] and its affiliates and/or licensors. All rights reserved. documented in this encounter [facility] [employer] 10-07-2024 Telephone encounter Note Images from the original note were not included. [facility] [employer] 10-07-2024 Miscellaneous Notes Images from the original note were not included. C9 OT approval with disclaimer uploaded to media. AA pending Fax successfully and paperwork scanned into the chart Additional allowance C9 was submitted as well Paperwork completed and fax pending awaiting confirmation ----- Message from Jennifer Salazar sent at 09/08/2024 10:27 AM EST ----- Regarding: C plan [facility] Plan Current work status: may return to work light duty on 09/08/24, with the following restrictions NWB and keep covered. C9 request: OT documented in this encounter [facility] 09-28-2024 History of Presen t illness Narrative Images from the original note were not included. Subjective: Marietta is approximately 3 week(s) s/p closed treatment of open left long finger nail avulsion/laceration DOI: 09/07/24 . Pain is nonexistent. He is no longer taking anything for pain. He denies significant complaints. The patient has been compliant with non-weight bearing restrictions in soft dressing. He admits to numbness and tingling. The patient has been performing daily soaks and dressing changes and completed the course of oral antibiotics. The patient returns today for a repeat skin check. He feels his wound is gradually healing as expected. He still has occasional drainage on his bandages and has been performing soaks as recommended. He completed his oral antibiotics. He continues to protect his finger with a dry bandage or splint as needed. He is uncertain if he would be able to return to work as he continues to have an open wound with limited weightbearing. Objective: BP (!) 123/93 Pulse 82 Ht 6' 2 (1.88 m) Wt 215 lb (97.5 kg) BMI 27.60 kg/m Ortho Exam Focused Exam of the LEFT Upper Extremity Skin: Appropriately healing wound along the pulp and distal nailbed of the middle finger, progressive adequate granulation tissue along the pulp wound, progressive epithelialization and callus formation along the dorsal aspect of the finger, new nail plate erupting from the eponychial fold, no active or expressible drainage, no surrounding erythema or signs of infection Clinical Picture: Edema: mild edema surrounding the long finger Palpation: tender to palpation over the long finger wound as expected ROM: LEFT long finger MCP (nl 0-45 H/90 ) PIP (nl 0 /100 ) DIP (nl 0 -80 ) Tip to Palm EXTENSION 0 0 0 FLEXION 90 70 20 able to contact *(Passive values entered only if different than active; otherwise = AROM) Remaining fingers flex to palm. Active wrist range of motion: full flexion/ full extension. Pronation full/ Supination full. Malrotation of Digit: No Malalignment: of Digit: No Motor: Intact in the hand - able to fire AIN, PIN, and Ulnar nerves Sensation: to light touch is normal in the median, ulnar, and radial nerve distributions Perfusion: Brisk capillary refill in all 5 digits XRay: NONE Assessment Diagnosis Plan 1. Avulsion of nail of left middle finger 2. Laceration of left middle finger without foreign body with damage to nail, subsequent encounter 3. Open wound of left middle finger Plan Marietta is healing his wound as expected without signs of infection today. I would like him to continue daily soaks, soft dressing changes, and Alumifoam splint as needed. Once he no longer notices drainage for 2 to 3 days, he can discontinue soaks. I would like him to continue protecting his finger when he is active with either a soft dressing or his AlumaFoam splint. Finger range of motion was encouraged. The patient was encouraged to come out of the splint multiple times a day to work on wrist and hand range of motion exercises. Home going therapy exercises were demonstrated today in the office and detailed exercise instructions are provided to the patient. The patient is to remain nonweightbearing through the hand for 3 more weeks and then can begin gentle weightbearing as tolerated in the splint. The patient was advised to gradually advance weightbearing as tolerated using pain as a guide. Once fully weightbearing in the splint, can begin weaning out of the splint and use as needed. Expected recovery course was discussed with the patient. I would like him to follow-up in 3 weeks for repeat wound check and to discuss his ability to return to full duty at work. In the meantime, he will continue light duty and was provided a letter for work today. Their questions were answered and are comfortable with the plan. Weight Bearing: Non Weight Bearing Rehabilitation: Home Exercises: full range of motion and to be non weight bearing. Instructions reviewed today in office. I plan to see Marietta back in 3 weeks to see how he is doing. Marietta knows to call the office with any questions or concerns in the interim. Future Imaging: NONE [facility] Plan Current work status: continue light duty, non weight bearing of the left hand and must wear dressing/splint on the middle finger at all times . C9 request: none Electronically signed by Kia Muñoz PA-C to Reg Dillard M.D. Hand & Upper Extremity Surgery 09/29/2024 at 5:06 PM. (Please note that portions of this note may have been completed with a voice recognition program. Efforts were made to edit the dictations but occasionally words are mis-transcribed.) documented in this encounter [facility] 2024 Telephone encounter Note C9 OT approval with disclaimer uploaded to [employer]. AA pending [facility] 2024 Miscellaneous Notes C9 OT approval with disclaimer uploaded to [employer]. AA pending Fax successfully and paperwork scanned into the chart Additional allowance C9 was submitted as well Paperwork completed and fax pending awaiting confirmation ----- Message from Jennifer Salazar sent at 09/08/2024 10:27 AM EST ----- Regarding: C plan [facility] Plan Current work status: may return to work light duty on 09/08/24, with the following restrictions NWB and keep covered. C9 request: OT documented in this encounter [facility] 09-15-2024 History of Presen t illness Narrative Images from the original note were not included. Subjective: Marietta is approximately 8 day(s) s/p left long finger nail avulsion/laceration DOI: 09/07/24. Pain is minimal. He is no longer taking anything for pain. He reports improvement in pain. The patient has been compliant with non-weight bearing restrictions in soft dressing. He admits to numbness and tingling just on the tip of the finger and the back where the wound is. The patient has been performing daily soaks and dressing changes and continues to take the course of oral antibiotics. The patient returns for repeat skin check. He continues to report drainage from his finger and has been compliant with his soaks and dressing changes. He has not yet returned to work but plans to next week. He feels that his finger range of motion has been gradually improving as well as his pain. He denies fevers and chills. Objective: Ht 6' 2 (1.88 m) Wt 215 lb (97.5 kg) BMI 27.60 kg/m Ortho Exam Focused Exam of the Left Upper Extremity Skin: Appropriately healing avulsion wound from the volar pulp and distal nailbed of the middle finger, adequate granulation tissue present throughout the base of the wound with scattered fibrous tissue present distally and mild scabbing, subtle active serosanguineous drainage from the distal wound bed with no signs of infection Clinical Picture: Edema: moderate edema surrounding the long finger wound Palpation: tender to palpation over the long finger wound, minimal ROM: LEFT long finger MCP (nl 0-45 H/90 ) PIP (nl 0 /100 ) DIP (nl 0 -80 ) Tip to Palm EXTENSION 0 0 0 FLEXION Not measured Not measured Not measured 2cm *(Passive values entered only if different than active; otherwise = AROM) Remaining fingers flex to palm. Active wrist range of motion: full flexion/ full extension. Pronation full/ Supination full. Motor: Intact in the hand - able to fire AIN, PIN, and Ulnar nerves Sensation: to light touch is normal in the median, ulnar, and radial nerve distributions Perfusion: Brisk capillary refill in all 5 digits XRay: None Assessment Diagnosis Plan 1. Avulsion of nail of left middle finger 2. Laceration of left middle finger without foreign body with damage to nail, subsequent encounter 3. Open wound of left middle finger Plan Marietta is healing his wound appropriately with no evidence of infection today. He was advised to continue daily soaks, soft dressing changes, antibiotics, and Alumifoam splint. Finger range of motion was encouraged within the confines of the splint. He understands he can remove his dressing and splint to perform range of motion without limits preferably while he is doing his soaks. No formal therapy is needed at this time. The patient is to remain nonweightbearing through the hand until his wound is completely healed. Expected recovery course was discussed with the patient. He will continue to monitor for signs of infection and contact the office if he has any concerns. He we will return to work next week as planned on light duty. His questions were answered and he is comfortable with the plan. Weight Bearing: Non Weight Bearing Rehabilitation: Home Exercises: full range of motion and to be non weight bearing. Instructions reviewed today in office. I plan to see Marietta back in 2 weeks to see how he is doing. Marietta knows to call the office with any questions or concerns in the interim. Future Imaging: None [facility] Plan Current work status: light duty keep wound covered at all times and non weight bearing C9 request: none Electronically signed by Kia Muñoz PA-C to Reg Dillard M.D. Hand & Upper Extremity Surgery 09/15/2024 at 5:31 PM. (Please note that portions of this note may have been completed with a voice recognition program. Efforts were made to edit the dictations but occasionally words are mis-transcribed.) documented in this encounter [facility] 09-15-2024 Instructions Kathy Torres - 09/15/2024 2:45 PM EST Images from the original note were not included. Soaks for Open Wounds Dr. Reg Dillard Please send clinical photos to [email or web address] Please include your name and date of in the subject line of e-mail Please remove all dressings so that you may see the skin fully Prepare a clean sink full of warm water (bath temperature). Add 3 or 4 squirts of liquid antibacterial soap Insert hand and soak for approximately 15 minutes, making sure to exercise your fingers under the water After finished soaking, pat wound dry Apply dressing as instructed in the office Layer #1 - Light cotton gauze Layer #2 - MJ wrap or other loose covering I typically recommend soaking 3 times per day with a clean dressing change after each soak. To be continued until wound completely closed with no drainage in dressings. documented in this encounter [facility] 09-13-2024 Telephone encounter Note Fax successfully and paperwork scanned into the chart [facility] 09-09-2024 Telephone encounter Note Additional allowance C9 was submitted as well Paperwork completed and fax pending awaiting confirmation [facility] 09-09-2024 Telephone encounter Note ----- Message from Jennifer Salazar sent at 09/08/2024 10:27 AM EST ----- Regarding: [facility] plan [facility] Plan Current work status: may return to work light duty on 09/08/24, with the following restrictions NWB and keep covered. C9 request: OT [facility] 09-08-2024 History of Presen t illness Narrative Images from the original note were not included. [facility] [place] [address] [place] [address] [address] [facility] [address] Dept: [phone] Dept Chief Complaint Patient presents with New Patient Left middle finger HISTORY Marietta Dobson is a 53 y.o. right handed male that presents for evaluation and treatment after sustaining an injury to his LEFT long finger that occurred 1 days ago. 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 Mechanism of injury - stuck in rubber roll press. Treatment up to this point has consisted of XRays and splinting in the emergency room. No results found for: HGBA1C The patient reports an injury to his left middle finger at work yesterday where it was stuck in a rolling press. He noticed immediate bleeding along the tip of his finger and nailbed and was treated with x-rays and soft dressing/splinting in the emergency department. He comes out of this dressing for the first time since application yesterday. He has mild stiffness of his finger which he relates to immobilization. OBJECTIVE Ht 6' 2 (1.88 m) Wt 215 lb (97.5 kg) BMI 27.60 kg/m Ortho Exam Focused Exam of the LEFT Upper Extremity Skin: Soft tissue avulsion from the distal pulp and nailbed of the left middle finger with nail plate no longer intact, surrounding area is mildly macerated, mild serosanguineous drainage Clinical image(s): Edema: mild edema surrounding the middle finger wound Palpation: tender to palpation over the middle finger wound is expected ROM: RIGHT long finger MCP (nl 0-45 H/90 ) PIP (nl 0 /100 ) DIP (nl 0 -80 ) Tip to Palm EXTENSION 0 0 0 FLEXION Not measured Not measured Not measured Limited flexion due to splinting and pain, expected *(Passive values entered only if different than active; otherwise = AROM) Patient is able to fire FDS and FDP to the middle finger Stability: no evidence of joint instabilities Motor: AIN, PIN, and ulnar motor intact Sensation: normal in the median, ulnar, and radial nerve distributions Perfusion: Brisk capillary refill in all 5 digits Examination of the contralateral upper extremity reveals skin to be warm, dry, and intact. There is no evidence of edema. He has full range of motion without apparent instabilities. There is no apparent tenderness to palpation. Excellent strength without deficit. Normal coordination and sensation throughout his upper extremity. Easily palpable radial pulse. IMAGING Plain films were reviewed by myself from a previous date. 3V HAND (AP, Oblique, and LAT) show soft tissue avulsion from the tip of the middle finger, no acute osseous abnormalities, advanced thumb CMC osteoarthritis PROCEDURE None ASSESSMENT (F03.844A) Laceration of left middle finger without foreign body with damage to nail, initial encounter (L91.955D) Avulsion of nail of left middle finger 1. Laceration of left middle finger without foreign body with damage to nail, initial encounter 2. Avulsion of nail of left middle finger cefadroxil (Duricef) 500 MG capsule PLAN I discussed with Marietta the natural history, expected outcome, and risks/benefits of both operative and nonoperative management of his particular diagnosis relative to his age, activity level, most recent imaging, and physical exam. Marietta elected to proceed with 3 times daily soaks and subsequent dressing changes, oral antibiotics as prescribed until completion, and DIP extension splinting as needed when active. He was encouraged to work on finger range of motion during his soaks but remain nonweightbearing through his left middle finger until his wound is completely healed. We reviewed expected recovery course. We also discussed signs of infection and he was advised to notify the office upon noticing any of these signs. He was provided with a work excuse letter listing his restrictions and we will complete [facility] forms as indicated. He will follow-up next week for repeat skin check. His questions were answered and he is comfortable with the plan. Immobilization: Alumafoam splint to be worn PRN Weight Bearing: Non Weight Bearing Follow-up: Marietta will followup with my physician facility assistant, Kia Muñoz PA-C in 1 weeks. He knows to call the office with any questions or concerns in the interim. Future Imaging: NONE [facility] Plan Current work status: light duty keep wound covered and non weight bearing C9 request: none Reg Dillard MD Hand and Upper Extremity Surgery [facility] Department of Orthopaedics and Sports Medicine 09/08/2024 (Please note that portions of this note may have been completed with a voice recognition program. Efforts were made to edit the dictations but occasionally words are mis-transcribed.) documented in this encounter [facility] 09-08-2024 Instructions Jennifer Sanchez, ATC - 09/08/2024 9:30 AM EST Soaks for Open Wounds Dr. Reg Dillard Please send clinical photos to [email or web address] Please include your name and date of in the subject line of e-mail Please remove all dressings so that you may see the skin fully Prepare a clean sink full of warm water (bath temperature). Add 3 or 4 squirts of liquid antibacterial soap Insert hand and soak for approximately 15 minutes, making sure to exercise your fingers under the water After finished soaking, pat wound dry Apply dressing as instructed in the office Layer #1 - Light cotton gauze Layer #2 - MJ wrap or other loose covering I typically recommend soaking 3 times per day with a clean dressing change after each soak. To be continued until wound completely closed with no drainage in dressings. documented in this encounter [facility] 09-07-2024 Note Name of Caller: [facility] Contact Reason for Appointment: Pt has open wound and has referral in chart BL called no answer. Please call patient back kaitlin. Thank you Office Name: Ortho [facility] 09-07-2024 Emergency department Note Discharge teaching completed. Pt verbalizes understanding of times to return to the ED, and follow up care discussed. Pt is stable and ambulatory upon discharge. Pt is a/o x 4; breathing is even and unlabored on room air. No distress noted. Pt leaves ED with all belongings. [facility] 09-07-2024 Note Discharge teaching c ompleted. Pt verbalizes understanding of times to return to the ED, and follow up care discussed. Pt is stable and ambulatory upon discharge. Pt is a/o x 4; breathing is even and unlabored on room air. No distress noted. Pt leaves ED with all belongings. [facility] 09-07-2024 Emergency department Note Discharge teaching completed. Pt verbalizes understanding of times to return to the ED, and follow up care discussed. Pt is stable and ambulatory upon discharge. Pt is a/o x 4; breathing is even and unlabored on room air. No distress noted. Pt leaves ED with all belongings. Associated Order(s): Wound Care EMERGENCY DEPARTMENT ENCOUNTER Pt Name: Marietta Dobson Birthdate 1970 Date of evaluation: 09/07/2024 ED Provider: Padmini Kaminski DO CHIEF COMPLAINT Chief Complaint Patient presents with Finger Injury Left middle finger was smashed in rubber pressure roll at work HISTORY OF PRESENT ILLNESS (Location/Symptom, Timing/Onset, Context/Setting, Quality, Duration, Modifying Factors, Severity) Note limiting factors. I wore appropriate PPE for the entirety of this encounter. HPI 53-year-old presents emergency department today with left middle finger crush injury after his finger got stuck in a rubber pressure roll at work. Uncertain of when last tetanus is updated. Avulsion injury with complete avulsion of nail to the left middle finger. Nursing Notes were reviewed. Limitations to history: None Outside historians: None REVIEW OF SYSTEMS Review of Systems Skin: Positive for wound. Pertinent positives and negatives as per HPI. PAST MEDICAL HISTORY History reviewed. No pertinent past medical history. SURGICAL HISTORY History reviewed. No pertinent surgical history. CURRENT MEDICATIONS Previous Medications No medications on file ALLERGIES Patient has no known allergies. FAMILY HISTORY No family history on file. SOCIAL HISTORY Social History Socioeconomic History Marital status: Tobacco Use Smoking status: Never Smokeless tobacco: Never Substance and Sexual Activity Alcohol use: Not Currently Comment: occasionally Drug use: Never SCREENINGS PHYSICAL EXAM ED Triage Vitals Temp Pulse Resp BP -- -- -- -- SpO2 Temp src Heart Rate Source Patient Position -- -- -- -- BP Location FiO2 (%) -- -- Physical Exam Vitals and nursing note reviewed. Constitutional: Appearance: Normal appearance. Cardiovascular: Rate and Rhythm: Normal rate. Pulmonary: Effort: Pulmonary effort is normal. Skin: General: Skin is warm and dry. Comments: Complete avulsion of fingernail of left middle finger and avulsion wound on the palmar aspect as well of the DIP of the left finger. Neurological: General: No focal deficit present. Mental Status: He is alert. Mental status is at baseline. Psychiatric: Mood and Affect: Mood normal. Behavior: Behavior normal. DIAGNOSTIC RESULTS Procedures/EKG: EKG was reviewed by myself. Physician EKG interpretation can be found in [facility] RADIOLOGY (Per Emergency Physician): Interpretation per the Radiologist below, if available at the time of this note: XR hand 3+ views left Final Result No acute fracture or dislocation identified. Extensive soft tissue swelling of the third digit distal aspect. Report Dictated on Electronically Signed By: Mack Andrade MD Electronically Signed Date/Time: 09/07/2024 2:44 PM EST ED BEDSIDE ULTRASOUND: Performed by ED Physician - none LABS: Labs Reviewed - No data to display All other labs were within normal range or not returned as of this dictation. EMERGENCY DEPARTMENT COURSE and DIFFERENTIAL DIAGNOSIS/MDM: Vitals: Vitals: 09/07/24 1342 BP: (!) 145/97 BP Location: Right arm Patient Position: Lying Pulse: 78 Resp: 18 Temp: 36.7 C (98.1 F) SpO2: 98% Weight: 97.5 kg (215 lb) Height: 1.88 m (6' 2) ED Course as of 09/07/24 1516 Tue Sep 07, 2024 134 53-year-old presents emergency department today with left middle finger crush injury after his finger got stuck in a rubber pressure roll at work. Uncertain of when last tetanus is updated. Avulsion injury with complete avulsion of nail to the left middle finger. Will obtain x-ray to evaluate for fracture give ibuprofen for pain and update tetanus. Will discuss with orthopedic surgery. [BM] 1447 XR:No acute fracture or dislocation identified. Extensive soft tissue swelling of the third digit distal aspect. [BM] 1448 Per orthopedic surgery: soak them in betadine solution and then rinse with NS. As far as dressing, I would recommend adaptic with bacitracin dressing and soft dressing over top. Given no exposed bone, will discharge home with this dressing and close outpatient follow-up with hand surgery and wound care. [BM] ED Course User Index [BM] Padmini Kaminski DO Diagnoses as of 09/07/24 1516 Open wound of left middle finger Soaked wound in Betadine, rinsed with TXA and normal saline. Applied bacitracin, Adaptic dressing and bulky dressing over top. Spoke with Dr. Dillard of hand surgery who will be able to see patient in his office tomorrow. Wound Care Performed by: Padmini Kaminski DO Authorized by: Padmini Kaminski DO Consent: Consent obtained: Verbal Consent given by: Patient Risks, benefits, and alternatives were discussed: yes Risks discussed: Bleeding, infection and pain Altheimer protocol: Patient identity confirmed: Verbally with patient Pre-procedure details: Preparation: Patient was prepped and draped in usual sterile fashion Sedation: Sedation type: None Anesthesia: Anesthesia method: None Procedure details: Indications: open wounds Wound location: Finger Finger location: L long finger Wound age (days): <1 Wound surface area (sq cm): 5 Debridement performed: No Dressing: Dressing applied: Adaptic dressing (bacitracin) Wrapped with: Bulky dressing Post-procedure details: Procedure completion: Tolerated Comments: Soaked wound in Betadine, rinsed with TXA and normal saline. Applied bacitracin, Adaptic dressing and bulky dressing over top. Medications Tdap (BoostRIX) vaccine 0.5 mL (0.5 mL IntraMUSCular Given 09/07/24 1350) ibuprofen tablet 800 mg (800 mg Oral Given 09/07/24 1349) tranexamic acid (Cyklokapron) injection 10 mL (10 mL Topical Given 09/07/24 1515) bacitracin ointment (14 g Topical Given 09/07/24 1515) REVAL: CRITICAL CARE TIME FINAL IMPRESSION 1. Open wound of left middle finger DISPOSITION Discharge 09/07/2024 03:12:59 PM PATIENT REFERRED TO: [facility] - [address] [place] [address] Reg Dillard MD [address] [place] [address] [place] [address] DISCHARGE MEDICATIONS: New Prescriptions No medications on file (Comment: Please note this report has been produced using speech recognition software and may contain errors related to that system including errors in grammar, punctuation, and spelling, as well as words and phrases that may be inappropriate. If there are any questions or concerns please feel free to contact the dictating provider for clarification.) Padmini Kaminski DO (electronically signed) Emergency Medicine Provider Padmini Kaminski DO 09/07/24 1516 documented in this encounter [facility] 09-07-2024 Hospital Discharg e instructions Padmini Kaminski DO - 09/07/2024 3:14 PM EST Someone from Dr. Dillard office should reach out to you but if you do not hear from anyone later today call them first thing in the morning as they should be able to see you in the office tomorrow for wound recheck. documented in this encounter [facility] 09-07-2024 Physician Emergency department Note Associated Order(s): Wound Care EMERGENCY DEPARTMENT ENCOUNTER Pt Name: Marietta Dobson Birthdate 1970 Date of evaluation: 09/07/2024 ED Provider: Padmini Kamniski DO CHIEF COMPLAINT Chief Complaint Patient presents with Finger Injury Left middle finger was smashed in rubber pressure roll at work HISTORY OF PRESENT ILLNESS (Location/Symptom, Timing/Onset, Context/Setting, Quality, Duration, Modifying Factors, Severity) Note limiting factors. I wore appropriate PPE for the entirety of this encounter. HPI 53-year-old presents emergency department today with left middle finger crush injury after his finger got stuck in a rubber pressure roll at work. Uncertain of when last tetanus is updated. Avulsion injury with complete avulsion of nail to the left middle finger. Nursing Notes were reviewed. Limitations to history: None Outside historians: None REVIEW OF SYSTEMS Review of Systems Skin: Positive for wound. Pertinent positives and negatives as per HPI. PAST MEDICAL HISTORY History reviewed. No pertinent past medical history. SURGICAL HISTORY History reviewed. No pertinent surgical history. CURRENT MEDICATIONS Previous Medications No medications on file ALLERGIES Patient has no known allergies. FAMILY HISTORY No family history on file. SOCIAL HISTORY Social History Socioeconomic History Marital status: Tobacco Use Smoking status: Never Smokeless tobacco: Never Substance and Sexual Activity Alcohol use: Not Currently Comment: occasionally Drug use: Never SCREENINGS PHYSICAL EXAM ED Triage Vitals Temp Pulse Resp BP -- -- -- -- SpO2 Temp src Heart Rate Source Patient Position -- -- -- -- BP Location FiO2 (%) -- -- Physical Exam Vitals and nursing note reviewed. Constitutional: Appearance: Normal appearance. Cardiovascular: Rate and Rhythm: Normal rate. Pulmonary: Effort: Pulmonary effort is normal. Skin: General: Skin is warm and dry. Comments: Complete avulsion of fingernail of left middle finger and avulsion wound on the palmar aspect as well of the DIP of the left finger. Neurological: General: No focal deficit present. Mental Status: He is alert. Mental status is at baseline. Psychiatric: Mood and Affect: Mood normal. Behavior: Behavior normal. DIAGNOSTIC RESULTS Procedures/EKG: EKG was reviewed by myself. Physician EKG interpretation can be found in [facility] RADIOLOGY (Per Emergency Physician): Interpretation per the Radiologist below, if available at the time of this note: XR hand 3+ views left Final Result No acute fracture or dislocation identified. Extensive soft tissue swelling of the third digit distal aspect. Report Dictated on Electronically Signed By: Mack Andrade MD Electronically Signed Date/Time: 09/07/2024 2:44 PM EST ED BEDSIDE ULTRASOUND: Performed by ED Physician - none LABS: Labs Reviewed - No data to display All other labs were within normal range or not returned as of this dictation. EMERGENCY DEPARTMENT COURSE and DIFFERENTIAL DIAGNOSIS/MDM: Vitals: Vitals: 09/07/24 1342 BP: (!) 145/97 BP Location: Right arm Patient Position: Lying Pulse: 78 Resp: 18 Temp: 36.7 C (98.1 F) SpO2: 98% Weight: 97.5 kg (215 lb) Height: 1.88 m (6' 2) ED Course as of 09/07/24 1516 Tue Sep 07, 2024 1349 53-year-old presents emergency department today with left middle finger crush injury after his finger got stuck in a rubber pressure roll at work. Uncertain of when last tetanus is updated. Avulsion injury with complete avulsion of nail to the left middle finger. Will obtain x-ray to evaluate for fracture give ibuprofen for pain and update tetanus. Will discuss with orthopedic surgery. [BM] 1447 XR:No acute fracture or dislocation identified. Extensive soft tissue swelling of the third digit distal aspect. [BM] 1448 Per orthopedic surgery: soak them in betadine solution and then rinse with NS. As far as dressing, I would recommend adaptic with bacitracin dressing and soft dressing over top. Given no exposed bone, will discharge home with this dressing and close outpatient follow-up with hand surgery and wound care. [BM] ED Course User Index [BM] Padmini Kaminski DO Diagnoses as of 09/07/24 1516 Open wound of left middle finger Soaked wound in Betadine, rinsed with TXA and normal saline. Applied bacitracin, Adaptic dressing and bulky dressing over top. Spoke with Dr. Dillard of hand surgery who will be able to see patient in his office tomorrow. Wound Care Performed by: Padmini Kaminski DO Authorized by: Padmini Kaminski DO Consent: Consent obtained: Verbal Consent given by: Patient Risks, benefits, and alternatives were discussed: yes Risks discussed: Bleeding, infection and pain Altheimer protocol: Patient identity confirmed: Verbally with patient Pre-procedure details: Preparation: Patient was prepped and draped in usual sterile fashion Sedation: Sedation type: None Anesthesia: Anesthesia method: None Procedure details: Indications: open wounds Wound location: Finger Finger location: L long finger Wound age (days): <1 Wound surface area (sq cm): 5 Debridement performed: No Dressing: Dressing applied: Adaptic dressing (bacitracin) Wrapped with: Bulky dressing Post-procedure details: Procedure completion: Tolerated Comments: Soaked wound in Betadine, rinsed with TXA and normal saline. Applied bacitracin, Adaptic dressing and bulky dressing over top. Medications Tdap (BoostRIX) vaccine 0.5 mL (0.5 mL IntraMUSCular Given 09/07/24 1350) ibuprofen tablet 800 mg (800 mg Oral Given 09/07/24 1349) tranexamic acid (Cyklokapron) injection 10 mL (10 mL Topical Given 09/07/24 1515) bacitracin ointment (14 g Topical Given 09/07/24 1515) REVAL: CRITICAL CARE TIME FINAL IMPRESSION 1. Open wound of left middle finger DISPOSITION Discharge 09/07/2024 03:12:59 PM PATIENT REFERRED TO: [facility] - [place] [address] [facility] [id number] Reg Dillard MD [address] [place] [address] [address] [place] [id number] DISCHARGE MEDICATIONS: New Prescriptions No medications on file (Comment: Please note this report has been produced using speech recognition software and may contain errors related to that system including errors in grammar, punctuation, and spelling, as well as words and phrases that may be inappropriate. If there are any questions or concerns please feel free to contact the dictating provider for clarification.) Padmini Kaminski DO (electronically signed) Emergency Medicine Provider Padmini Kaminski DO 09/07/24 1516 [facility] 01-22-2022 Note [facility] Medical Records Department [address] [place] [address] History Physical Exam 01/22/22921 MR#: [id number] Acct: [id number] Name: MARIETTA DOBSON Rep #: [id number] : 1970 51 From: Joseph Archibald MD PCP: Dr. Jimmy Carpio MD Status:REG [facility] Location: [place] [address] HPI - General HPI Narrative MARIETTA DOBSON, is a 51 M who presents for screening colonoscopy. The patient has not had a colonoscopy in the past. He denies any abdominal pain or blood in the stool. He has no family history of colon cancer. [facility] Medical History (Updated 01/16/22 @ 10:57 by Kathy Noble) No pertinent past medical history Home Medications NK 12/20/21 [History Last Taken Unknown] Allergy/AdvReac Type Severity Reaction Status Date / Time No Known Allergies Allergy Verified 01/22/22 08:24 Surgical History (Updated 01/16/22 @ 10:57 by Kathy Noble) No pertinent past surgical history Social History Smoking Status: Never smoker Past Medical/Surgical History Planned Operation Planned Operative Procedure/s: Colonoscopy, OA Previous Hospitalizations/Surgeries HX Hospitalizations: No Any Problems With Anesthesia: No You/Your Family Experience Fever (Hyperthermia) With Anes: No Cholinesterase deficiency: No Cardiovascular Hx Hypertension: No Respiratory Hx Sleep Apnea: No Hx Respiratory Tract Infection/Cold (presently): No Do You Snore Loudly (louder than talking or can be heard): No Do You Often Feel Tired/ Fatigued/ Sleepy Dring Daytime?: No Has Anyone Observed You Stop Breathing During Sleep?: No Result (for STOP score): Negative Smoking Status: Never smoker Neurological Does patient have nerve stimulator: No Allergies No Known Allergies Allergy (Verified 01/22/22 08:24) Discharge Is Pt Admitted From a Long Term, or a Care Home: No After D/C, Where Do you Plan to Go: Return Home Vital Signs Vital Signs Vital Signs: 01/22/22 08:26 01/22/22 08:27 Temperature 97.3 F L Temperature Source Temporal Pulse Rate 68 Respiratory Rate 18 Respiratory Pattern Normal Blood Pressure 119/71 Blood Pressure Mean 87 Blood Pressure Source Monitor Blood Pressure Position Semi-Fowlers Blood Pressure Location Right Arm Pulse Ox 98 Oxygen Delivery Method Room Air Weight Weight: 213 lb 12.8 oz Body Mass Index (BMI) 27.4 Physical Exam Const alert and oriented x3 Resp normal respiratory effort and normal air movement Cardio regular rate and regular rhythm GI soft to palpation, non-tender and non-distended Assessment Plan Assessment/Plan (1) Encounter for screening for malignant neoplasm of colon: PLAN: I explained endoscopy in detail to the patient. I explained the risks including but not limited to stroke or heart attack with anesthesia, perforation of the GI tract, bleeding, infection. I explained that any of these could necessitate further emergency surgery. The patient understands and all questions were answered sufficiently. The patient wishes to proceed with procedure. Joseph Archibald MD Pager: [facility] [address] [place] [address], [address] [place] [address] Office: Surgery Risks - Colonoscopy Risks Include but are not Limited To: Risks include but are not limited to: Bleeding, perforation requiring further surgery, inability to complete colonoscopy requiring barium enema. 01/22/22922 Cosigner Signature (if applicable): CC: Dr. Joseph Archibald MD; Dr. Jimmy Carpio MD Signed [facility] Evaluation note No assessment inform ation available [facility] Work Phone: Evaluation note Diagnosis Onset Date Encounter for screening for malignant neoplasm of colon acute [facility] Work Phone: Evaluation note* Diagnosis Open wound of left middle finger- Primary documented in this encounter [facility]* Diagnosis Laceration of left middle finger without foreign body with damage to nail, initial encounter- Primary Avulsion of nail of left middle finger Open wound of left middle finger documented [facility]* Diagnosis Avulsion of nail of left middle finger- Primary Laceration of left middle finger without foreign body with damage to nail, subsequent encounter Open wound of left middle finger documented in this encounter [facility]* Diagnosis Avulsion of nail of left middle finger- Primary Laceration of left middle finger without foreign body with damage to nail, subsequent encounter Open wound of left middle finger documented in this encounter [facility]* Diagnosis Avulsion of nail of left middle finger- Primary Laceration of left middle finger without foreign body with damage to nail, subsequent encounter Open wound of left middle finger documented in this encounter [facility] note* Diagnosis Arthritis of left knee documented in this encounter [facility] Health Summary Purpose Family History No Family History Records FoundNo Family History Records FoundNo Family History Records Found Advance Directives No Advanced Directives Records Found Advance Directive Response Recorded Date/ Time Living Will No January 16, 2022 10:53am Power of Overhead Irrigator No January 16 10:53am Chief Complaint and Reason for Visit Chief Complaint Amb Documentation Reason for Visit Encounter for screen ing for malignant neoplasm of colon Additional Source Comments (unrecognized sect ion and content) No Status Records FoundNo Status Records FoundNo Status Records Found INFORMATION SOURCE (unrecogn ized section and content) DATE CREATED AUTHOR 07/01/2019 [facility] ([place]) DATE CREATED AUTHOR AUTHOR'S ORGANIZ ATION 02/06/2022 [facility] DATE CREATED AUTHOR AUTHOR'S ORGANIZ ATION 10/30/2024 [facility] Goals (unrecognized section and content) Goals may be documented in a n alternate section Reason for Visit (unrecogniz ed section and content) Reason Comments Finger Injury Left middle finger w as smashed in rubber pressure roll at work Reason Comments New Patient Left middle finger Specialty Diagnoses / Procedures Referred By Sofia germain Referred To Contact Orthopedic Surgery Diagnoses Open wound of left middle finger Padmini Kaminski, [address] [place] [address] Phone: tel: fax: Reg Dillard MD [address] [place] [address] [place] [address] Phone: tel: fax: Referral ID Status Reason Start Date Expiration Date Visits Requested Visits Authorized [id number] Pending Review Specialty Services Required 09/07/2024 09/07/2025 1 1 Reason Comments Follow-up Worker's Compensation Wound Check Reason Comments Follow-up [facility] - left long fing er wound check DOI 09/07/24 Reason Onset Date Comments Worker's Compensation 09/09/2024 Reason Comments Follow-up left long finger wou nd check DOI 09/07/24 Reason Comments New Patient Left knee pain Scheduled Active and Recently Administ ered Medications (unrecognized section and content) Medication Order 09/05/2024 09/06/2024 09/07/2024 bacitracin ointment (COMPLETED) Topical, Once, On Fri09/07/24 at 1450, For 1 dose 1515 (Given - Provid er: Pamela Burton RN - Comment: left middle finger) ibuprofen tablet 800 mg (COMPLETED) 800 mg, Oral, Once, On Fri09/07/24 at 1345, For 1 dose 1349 (Given - Provid er: Pamela Burton RN) tranexamic acid (Cyklokapron) injection 10 mL (COMPLETED) 10 mL, Topical, Once, On Fri09/07/24 at 1425, For 1 dose, Bedside to soak gauze for finger wound, Apply to: Both Nares 1515 (Given - Provid er: Pamela Burton RN - Comment: left middle finger) Care Teams (unrecognized sec tion and content) Obstetrics Nurse Practitioner Relationship Specialty Start Date End Date Jimmy Carpio MD [address] [place] [address] PCP - General Family Medicine 09/07/24 Obstetrics Nurse Practitioner Relationship Specialty Start Date End Date Jimmy Carpio MD [address] [place] [address] PCP - General Family Medicine 09/07/24 Obstetrics Nurse Practitioner Relationship Specialty Start Date End Date Jimmy Carpio MD [address] [place] [address] PCP - General Family Medicine 09/07/24 Obstetrics Nurse Practitioner Relationship Specialty Start Date End Date Jimmy Carpio MD [address] [place] [address] PCP - General Family Medicine 09/07/24 Obstetrics Nurse Practitioner Relationship Specialty Start Date End Date Jimmy Carpio MD [address] [facility] [address] [place] [address] PCP - General Family Medicine 09/07/24 Obstetrics Nurse Practitioner Relationship Specialty Start Date End Date Jimmy Carpio MD [address] [facility] [address] [place] [address] PCP - General Family Medicine 09/07/24 Obstetrics Nurse Practitioner Relationship Specialty Start Date End Date Jimmy Carpio MD [address] [facility] [address] [place] [address] PCP - General Family Medicine 09/07/24 Obstetrics Nurse Practitioner Relationship Specialty Start Date End Date Jimmy Carpio MD [address] [facility] [address] [place] [address] PCP - General Family Medicine 09/07/24 FOR RECORDS PERTAINING TO PATIENTS WHO ARE OR HAVE BEEN ENROLLED IN A CHEMICAL DEPENDENCY/SUBSTANCEABUSE PROGRAM, SOME INFORMATION MAY BE OMITTED. This clinical summary was aggregated from multiple sources. Caution should be exercised in using it in the provision of clinical care. This summary normalizes information from multiple sources, and as a consequence, information in this document may materially change the coding, format and clinical context of patient data. In addition, data may be omitted in some cases. CLINICAL DECISIONS SHOULD BE BASED ON THE PRIMARY CLINICAL RECORDS. [facility] [employer] [facility]. provides no warranty or guarantee of the accuracy or completeness of information in this document.
[2025-03-03 13:09] LABS: Anion Gap 10 (5-15); BUN 20 mg/dL (4-19); BUN/Creat Ratio 20.5 RATIO (10-20); Calcium,Total 9.1 mg/dL (7.6-11.0); Carbon Dioxide 24.5 mmol/L (21.0-32.0); Chloride 106 mmol/L (98-108); Cholesterol 193 mg/dL (<=200); Glucose 103 mg/dL (70-99); Low Density Lipoprotein Calc. 121 mg/dL; PSA,Total - Annual Screen 1.05 ng/mL (0.02-4.00); Potassium 4.5 mmol/L (3.3-5.1); Triglycerides 98 mg/dL; Very Low Density Lipoprotein 20 mg/dL (5-40); cholesterol:hdl ratio screen 3.65
== END | disposition home or self-care (01) ==
LOC: LAB 09:45
PROVIDERS: PCP Family Medicine; Referring Provider Family Medicine; Visit Provider Family Medicine
DX: Z00.00 Encounter for general adult medical examination without abnormal findings (principal)
CPT/HCPCS: 36415; 80048; 80061; 84153; 84443; G0103